=== PATIENT | male | born 1940 | race Caucasian/White ===

== ENCOUNTER 2019-11-08 11:14 | Inpatient (IN) ==
[2019-11-08 12:52] LABS: Basophils # (auto) 0.03 K/uL (0-0.2); Basophils % (auto) 0.4 %; Eosinophils # (auto) 0.22 K/uL (0-0.5); Eosinophils % (auto) 2.7 %; Hemoglobin 13.7 g/dL (14.0-18.0); Immature Granulocytes # (auto) 0.01 K/uL (0.00-0.02); Immature Granulocytes % (auto) 0.1 %; Lymphocytes # (auto) 2.44 K/uL (1.2-3.4); Lymphocytes % (auto) 30.5 %; Mean Corpuscular Hemoglobin 29.2 pg (25-34); Mean Corpuscular Hgb Conc 32.6 g/dL (32-36); Mean Corpuscular Volume 89.6 fL (80-100); Mean Platelet Volume 9.7 fL (7.4-10.4); Monocytes # (auto) 0.84 K/uL (0.11-0.59); Monocytes % (auto) 10.5 %; Neutrophils # (auto) 4.47 K/uL (1.4-6.5); Neutrophils % (auto) 55.8 %; Platelet Count 303 K/uL (130-400); RDW Coefficient of Variation 14.8 % (11.5-14.5); RDW Standard Deviation 48.3 fL (36.4-46.3); Red Blood Count 4.69 M/uL (4.7-6.1); White Blood Count 8.01 K/uL (4.8-10.8)
[2019-11-08] MEDS ORDERED: PIPERACILLIN/TAZOBACTAM 4.5 GM/120 ML BAG IV ONE (12:52)
[2019-11-08] MEDS ORDERED: SODIUM CHLORIDE 0.9% 1000ML 1,000 ML IV ONE (12:52)
[2019-11-08] MEDS ORDERED: PIPERACILL/TAZOBAC CONSULT ACTIVE PRN ×2 (12:52→19:20)
[2019-11-08 13:04] LABS: INR 2.7 (0.9-1.1); Partial Thromboplastin Ratio 1.4; Partial Thromboplastin Time 39.2 Seconds (21.0-31.0); Prothrombin Time 27.2 Seconds (9.0-12.0)
[2019-11-08 13:10] LABS: Alanine Aminotransferase 63 U/L (12-78); Albumin Level 2.6 gm/dl (3.4-5.0); Aspartate Aminotransferase 50 U/L (15-37); BUN Creatinine Ratio 75.2 (10-20); Blood Urea Nitrogen 31 mg/dl (7-18); Calcium 9.3 mg/dl (8.5-10.1); Carbon Dioxide 32 mmol/L (21-32); Chloride 102 mmol/L (98-107); Creatinine Clr Calc Pharmacy 59.2 ml/min; Est GFR (African American) 131.4; Est GFR (Non-African American) 113.4; Glucose 76 mg/dl (70-99); Magnesium 2.2 mg/dl (1.8-2.4); Potassium 3.8 mmol/L (3.5-5.1); Sodium 140 mmol/L (136-145)
[2019-11-08 13:15] LABS: Albumin Globulin Ratio 0.4 (0.9-2); Alkaline Phosphatase 121 U/L (45-117); Bilirubin,Total 0.3 mg/dl (0.2-1); Globulin 6.2 gm/dl (2.5-4.0); Total Protein 8.8 gm/dl (6.4-8.2); Troponin I < 0.015 ng/ml (0-0.045)
--- NOTE | 2019-11-08 13:15 | Emergency Department Note ---
Impression & Plan Pneumonia, Weakness, Acute hypotension ED Provider Note NAME: ABIGAIL HOWARD AGE: 79 SEX: M : 1940 ARRIVES VIA: Walk-In INFORMANT: Patient, the patient's roommate ED PROVIDER(S): Jamir Butler DO CHIEF COMPLAINT: Cough HPI: The patient is a 79-year-old male who has a history of poor nutrition who has a feeding tube who presented to the emergency department for generalized weakness. Some of the history is obtained from the patient's roommate who states that he has been experiencing increased weakness. The patient himself states he is been having shortness of breath as well as cough. He states the cough is productive for a brown and blood-tinged sputum. He does have a history of pulmonary embolism in the past. He denies having any fevers. He denies having any lower extremity swelling. He does admit to significant weight loss. He denies any tuberculosis risk factors such as travel out of the country incarceration living with a family member who was diagnosed with TB or ever being tested for TB. The patient states that his symptoms are moderate to severe at this time. The patient states that his symptoms are moderate to severe at this time. He feels very weak and is having significant difficulty ambulating. ROS: See above HPI for pertinent positives & negatives. A total of 10 systems reviewed and were otherwise negative. PAST MEDICAL HISTORY: See Below PAST SURGICAL HISTORY: See Below FAMILY HISTORY: See Below SOCIAL HISTORY: See Below HOME MEDICATIONS: See Below ALLERGIES: See Below VITALS: See Below PHYSICAL EXAMINATION: GENERAL: The patient is awake and alert but very frail and cachectic appearing. EYES: The conjunctivae are clear. The pupils are round and reactive. EARS, NOSE, MOUTH AND THROAT: The nose is without any evidence of any deformity. Mucous membranes are dry. NECK: The neck is nontender and supple. RESPIRATORY: Diminished breath sounds are noted at the right base with rales at the right base. There is no tachypnea or conversational dyspnea. CARDIOVASCULAR: Regular rate and rhythm noted there no murmurs rubs or gallops normal S1 normal S2. GASTROINTESTINAL: The abdomen is soft. Abdomen is nontender. PELVIS: The Pelvis is stable. No tenderness to palpation is noted. BACK: No midline tenderness or or step-off noted range of motion in flexion extension as well as rotation no signs of muscle spasm noted MUSCULOSKELETAL/EXTREMITIES: There is no evidence of gross deformity full range of motion is noted in the hips and shoulders. SKIN: Skin is warm and dry. NEUROLOGIC: Patient is awake alert and oriented x3. MEDICAL DECISION MAKING: The patient is a 79-year-old male who presented to the emergency department for an evaluation of generalized weakness and difficulty breathing. The patient is noticed cough with brown-tinged sputum. He also noticed some blood in his sputum. The patient was found to have signs of pneumonia on chest x-ray. Given his other findings further radiographic studies including a chest CT were obtained. I discussed the patient's laboratory and radiographic studies with him. He was treated with IV fluids and IV antibiotics. He was reevaluated mult iple times. He was feeling somewhat improved on subsequent reevaluation. The patient continued to have hypotension. I discussed the patient's condition with the on-call [facility] hospitalist. They have agreed to evaluate the patient in the emergency department for further management and disposition. Triage Nursing notes reviewed. Prior medical records reviewed Vital Signs: reviewed and remarkable for hypotension Differential diagnosis: Reactive airway disease, pneumonia, pneumothorax, COPD, CHF, infections, cardiac ischemia, pulmonary embolism, musculoskeletal, gastrointestinal, as well as other pathologies. ER treatment provided: See below Diagnostics interpreted by me: ECG: EKG was obtained in the emergency department. My interpretation is normal sinus rhythm at 71 bpm. Inferior Q waves are noted. Poor R wave progression was noted throughout. This was compared to a tracing from February 122018. No significant changes were noted. Cardiac Monitoring: An order was placed for continuous cardiac monitoring. The monitor shows a rate of 78 with sinus rhythm. Laboratory studies: As stated above and show below. Imaging studies: See below Consultation(s): 1545: I discussed this case with Dr. Finch. He is agreed to evaluate the patient in the emergency department for further management and disposition. ED COURSE: Procedures: none PDMP:reviewed and no issues Critical Care: None Past Med/Surg History Medical History HTN (hypertension) Raynauds disease TIA (transient ischemic attack) Surgical History No pertinent past surgical history Family History Other Family history non-contributory Social History Smoking Status: Never smoker Hx Alcohol Use: No Hx Substance Use: No Preferred Language: Azeri Communication Ability: Effective Press Offbearer Required: No Beliefs That Will Affect Care: None Current Living Situation: Significant Other Feels Safe at Home: Yes Allergies Allergies Allergy/AdvReac Type Severity Reaction Status Date / Time fentanyl Allergy Severe Seizure Verified 11/08/19 14:03 propofol Allergy Severe Seizure Verified 11/08/19 14:03 Home Meds Home Medications Medication Instructions Recorded Confirmed food supplemt, lactose-reduced 1 ea PO QID ml 10/28/19 11/08/19 0.08 gram-1.5 kcal/mL oral liquid calcium carbonate-vitamin D3 1 tab PO QAM 11/08/19 11/08/19 [Calcium 600 + D(3)] food supplemt, lactose-reduced 1 ea PO QID 11/08/19 11/08/19 [Ensure] warfarin [Coumadin] 5 mg PO 5XWK 11/08/19 11/08/19 warfarin [Coumadin] 7.5 mg PO 2XWK 11/08/19 11/08/19 Results & Data (ED) Vital Signs Vital Signs - 24 hr 11/08/19 11:39 11/08/19 12:22 11/08/19 12:30 Temperature 36.8 C Temperature Source Oral Pulse Rate 77 69 Pulse Rate from SpO2 Sensor 69 Respiratory Rate 18 16 Respiratory Effort / Characteristics Non-Labored Respiratory Depth Normal Respiratory Pattern Regular Blood Pressure 93/65 L 103/63 Blood Pressure Mean 74 72 Blood Pressure Position Sitting Pulse Oximetry 97 99 97 Oxygen Delivery Method Room Air Room Air Room Air Sepsis Recent Fever Within 48 Hours No Sepsis New/Unexplained Change in Mental Status No Sepsis Action Taken by Nursing No Action Required 11/08/19 13:00 11/08/19 13:30 11/08/19 14:10 Temperature Temperature Source Pulse Rate 70 68 72 Pulse Rate from SpO2 Sensor 70 68 Respiratory Rate 20 14 18 Respiratory Effort / Characteristics Respiratory Depth Respiratory Pattern Blood Pressure 106/75 110/69 102/62 Blood Pressure Mean 86 75 70 Blood Pressure Position Pulse Oximetry 97 100 Oxygen Delivery Method Room Air Sepsis Recent Fever Within 48 Hours Sepsis New/Unexplained Change in Mental Status Sepsis Action Taken by Nursing 11/08/19 14:30 11/08/19 15:00 11/08/19 15:30 Temperature Temperature Source Pulse Rate 72 68 70 Pulse Rate from SpO2 Sensor 71 68 69 Respiratory Rate 17 13 17 Respiratory Effort / Characteristics Respiratory Depth Respiratory Pattern Blood Pressure 112/63 105/63 103/60 Blood Pressure Mean 74 76 73 Blood Pressure Position Pulse Oximetry 100 98 Oxygen Delivery Method Sepsis Recent Fever Within 48 Hours Sepsis New/Unexplained Change in Mental Status Sepsis Action Taken by Nursing 11/08/19 16:00 Temperature Temperature Source Pulse Rate 77 Pulse Rate from SpO2 Sensor 76 Respiratory Rate 18 Respiratory Effort / Characteristics Respiratory Depth Respiratory Pattern Blood Pressure 91/60 L Blood Pressure Mean 70 Blood Pressure Position Pulse Oximetry 95 Oxygen Delivery Method Sepsis Recent Fever Within 48 Hours Sepsis New/Unexplained Change in Mental Status Sepsis Action Taken by Nursing Laboratory Data Result diagrams: 11/08/19 12:15 11/08/19 12:15 Lab Results 11/08/19 11/08/19 11/08/19 Range/Units 12:15 12:15 12:15 WBC 8.01 (4.8-10.8) K/uL RBC 4.69 L (4.7-6.1) M/uL Hgb 13.7 L (14.0-18.0) g/dL Hct 42.0 (42-52) % MCV 89.6 (80-100) fL MCH 29.2 (25-34) pg MCHC 32.6 (32-36) g/dL RDW Std Deviation 48.3 H (36.4-46.3) fL RDW Coeff of Bee 14.8 H (11.5-14.5) % Plt Count 303 (130-400) K/uL MPV 9.7 (7.4-10.4) fL Immature Gran % (Auto) 0.1 % Neut % (Auto) 55.8 % Lymph % (Auto) 30.5 % Sioux % (Auto) 10.5 % Eos % (Auto) 2.7 % Baso % (Auto) 0.4 % Neut # (Auto) 4.47 (1.4-6.5) K/uL Lymph # (Auto) 2.44 (1.2-3.4) K/uL Sioux # (Auto) 0.84 H (0.11-0.59) K/uL Eos # (Auto) 0.22 (0-0.5) K/uL Baso # (Auto) 0.03 (0-0.2) K/uL Immature Gran # (Auto) 0.01 (0.00-0.02) K/uL PT 27.2 H (9.0-12.0) Seconds INR 2.7 H (0.9-1.1) APTT 39.2 H (21.0-31.0) Seconds PTT Ratio 1.4 Sodium 140 (136-145) mmol/L Potassium 3.8 (3.5-5.1) mmol/L Chloride 102 (98-107) mmol/L Carbon Dioxide 32 (21-32) mmol/L Anion Gap 6.0 (3-11) BUN 31 H (7-18) mg/dl Creatinine 0.41 L (0.6-1.4) mg/dl Est Cr Clr Drug Dosing 59.2 ml/min Est GFR ( Amer) 131.4 Est GFR (Non-Af Amer) 113.4 BUN/Creatinine Ratio 75.2 H (10-20) Glucose 76 (70-99) mg/dl Lactate (0.4-2.0) mmol/L Calcium 9.3 (8.5-10.1) mg/dl Magnesium 2.2 (1.8-2.4) mg/dl Total Bilirubin 0.3 (0.2-1) mg/dl AST 50 H (15-37) U/L ALT 63 (12-78) U/L Alkaline Phosphatase 121 H (45-117) U/L Troponin I < 0.015 (0-0.045) ng/ml Total Protein 8.8 H (6.4-8.2) gm/dl Albumin 2.6 L (3.4-5.0) gm/dl Globulin 6.2 H (2.5-4.0) gm/dl Albumin/Globulin Ratio 0.4 L (0.9-2) Procalcitonin (0-0.5) ng/ml 11/08/19 11/08/19 Range/Units 12:15 13:12 WBC (4.8-10.8) K/uL RBC (4.7-6.1) M/uL Hgb (14.0-18.0) g/dL Hct (42-52) % MCV (80-100) fL MCH (25-34) pg MCHC (32-36) g/dL RDW Std Deviation (36.4-46.3) fL RDW Coeff of Bee (11.5-14.5) % Plt Count (130-400) K/uL MPV (7.4-10.4) fL Immature Gran % (Auto) % Neut % (Auto) % Lymph % (Auto) % Sioux % (Auto) % Eos % (Auto) % Baso % (Auto) % Neut # (Auto) (1.4-6.5) K/uL Lymph # (Auto) (1.2-3.4) K/uL Sioux # (Auto) (0.11-0.59) K/uL Eos # (Auto) (0-0.5) K/uL Baso # (Auto) (0-0.2) K/uL Immature Gran # (Auto) (0.00-0.02) K/uL PT (9.0-12.0) Seconds INR (0.9-1.1) APTT (21.0-31.0) Seconds PTT Ratio Sodium (136-145) mmol/L Potassium (3.5-5.1) mmol/L Chloride (98-107) mmol/L Carbon Dioxide (21-32) mmol/L Anion Gap (3-11) BUN (7-18) mg/dl Creatinine (0.6-1.4) mg/dl Est Cr Clr Drug Dosing ml/min Est GFR ( Amer) Est GFR (Non-Af Amer) BUN/Creatinine Ratio (10-20) Glucose (70-99) mg/dl Lactate 1.1 (0.4-2.0) mmol/L Calcium (8.5-10.1) mg/dl Magnesium (1.8-2.4) mg/dl Total Bilirubin (0.2-1) mg/dl AST (15-37) U/L ALT (12-78) U/L Alkaline Phosphatase (45-117) U/L Troponin I (0-0.045) ng/ml Total Protein (6.4-8.2) gm/dl Albumin (3.4-5.0) gm/dl Globulin (2.5-4.0) gm/dl Albumin/Globulin Ratio (0.9-2) Procalcitonin 0.11 (0-0.5) ng/ml Administered Medications Ioversol (Optiray 320 125ml) 94 ml IV ONCE PRN PRN Reason: Interaction Checking Stop: 11/12/19 13:58 Last Admin: 11/08/19 14:00 Dose: 94 ml Documented by: [id number] Discontinued Medications Piperacillin Sod/Tazobactam Sod (Zosyn) 4.5 gm in 120 mls @ 240 mls/hr IV NOW ONE Stop: 11/08/19 13:21 Last Infusion: 11/08/19 15:13 Dose: 0 mls/hr Documented by: [id number] Admin: 11/08/19 14:00 Dose: 240 mls/hr Documented by: [id number] Sodium Chloride (Nss 1000ml) 1,000 mls @ 999 mls/hr IV .Q1H1M ONE Stop: 11/08/19 13:52 Last Infusion: 11/08/19 15:13 Dose: 0 mls/hr Documented by: [id number] Admin: 11/08/19 14:00 Dose: 999 mls/hr Documented by: [id number] Discharge Plan Visit Data Chief Complaint: Cough Stated Complaint: COUGHING BLOOD, WEAKNESS ED Provider: Jamir Butler Discharge Problem: Pneumonia, Weakness, Acute hypotension Patient Disposition: Being Evaluated by Hospitalist Condition: Good Forms Stand Alone Forms: [facility] Prescriptions Prescriptions: No Action Ensure Enlive 0.08 gram-1.5 kcal/mL liquid 1 ea PO QID RF: 0 warfarin [Coumadin] 7.5 mg tablet 7.5 mg PO 2XWK RF: 0 warfarin [Coumadin] 5 mg tablet 5 mg PO 5XWK RF: 0 Ensure Liquid 1 ea PO QID RF: 0 calcium carbonate-vitamin D3 [Calcium 600 + D(3)] 600 mg(1,500mg) -400 unit tablet 1 tab PO QAM RF: 0 Referrals Referrals: Manny Loomis M.D. [Primary Care Provider] -
--- NOTE | 2019-11-08 13:18 | XRay Report ---
SINGLE VIEW CHEST CLINICAL HISTORY: Sepsis. FINDINGS: An AP, portable, upright chest radiograph is compared to study dated 03/11/2019 and correla sly with chest CT dated 02/12/2019. The cardiomediastinal silhouette is unremarkable. Chronic interst itial thickening is similar to previous. Residual parenchymal scarring is seen in the right midlung. This is almost completely resolved from 03/11/2019. No airspace consolidation or large pleural effusi on is identified. Scarring/atelectasis is noted at the lung bases. No pneumothorax is seen. The skele chiqui structures are osteopenic. The bony thorax is grossly intact. Degenerative change and scoliosis a re noted in the thoracic spine. IMPRESSION: Chronic parenchymal changes as above with no acute cardiopulmonary abnormality. ACT 112: Negative or not required by law. Electronically signed by: Alcides Lott M.D. 11/08/2019 1:16 PM
[2019-11-08] MEDS ORDERED: OPTIRAY 320 125ml IV PRN (13:59)
--- NOTE | 2019-11-08 14:24 | CT Scan Report ---
CT ANGIOGRAM OF THE CHEST CLINICAL HISTORY: Sepsis. COMPARISON STUDY: Chest x-ray dated 11/08/2019. Chest CT dated 02/12/2019. TECHNIQUE: Following the IV administration of 120 cc of Optiray 320, CT angiogram of the chest was pe rformed from the upper abdomen to the thoracic inlet utilizing the pulmonary embolus protocol. Images are reviewed in the axial, sagittal, and coronal planes. 3-D MIPS images are created and assessed. I V contrast was administered without complication. A dose lowering technique was utilized adhering to the principles of ALARA. CT DOSE: 282.13 mGy.cm FINDINGS: Thyroid: Imaged portions of the thyroid gland are normal in size and attenuation. Thoracic aorta: There is mild atherosclerotic calcification of the thoracic aorta, which is normal in caliber and demonstrates standard 3-vessel arch anatomy. No dissection is seen. Pulmonary vasculature: The pulmonary trunk is normal in caliber. There are no filling defects identif ied in main, lobar, or segmental pulmonary branches to suggest pulmonary embolus. Heart: The heart is normal in size and without pericardial effusion. Lungs and pleural spaces: Evaluation of the lung parenchyma is degraded by motion artifact. There is masslike consolidation at the paramediastinal right lung base. Foci of nodular consolidation are agai n seen in the left upper lobe and at the left apex on image #168 (measuring 0.7 cm) and at the left a pex on image #251 (measuring 1.8 cm). There are new subcentimeter foci of nodularity in the left lowe r lobe seen on images #82 and #95. Additional patchy groundglass consolidation is present throughout both lungs, greatest at the lung bases and in the right middle lobe. A trace right pleural effusion i s noted. Secretions are noted in the trachea. Parenchyma scarring is noted in the right middle lobe. Mediastinum: Prominent mediastinal lymph nodes are identified. A pretracheal node on image #213 measu res 10 mm short axis. A subcarinal node measures 1.8 cm in short axis. Antonella: No hilar adenopathy is seen. Axillae: There is no axillary lymphadenopathy. Upper abdomen: A 2.4 cm cyst is seen in the upper pole of the left kidney. Partially visualized upper abdominal viscera is otherwise grossly unremarkable. Skeletal structures: The skeletal structures are osteopenic. Degenerative change and kyphoscoliosis a re noted in the thoracic spine. Advanced degenerative change is seen at the left sternoclavicular ruth nt. No lytic or blastic bony lesions are seen. Soft tissues: The patient is cachectic. IMPRESSION: 1. There is no evidence of pulmonary embolus in the main, lobar, or segmental pulmonary arteries. 2. There is masslike consolidation now seen in the paramediastinal right lower lobe at the lung base. This is new from 02/12/2019, and likely represents pneumonia. Follow-up to resolution is recommended . 3. Foci of nodularity/consolidation in the left upper lobe or also seen previously. 4. There are new subcentimeter foci of consolidation in the left lower lobe, as well as extensive lynette undglass consolidation throughout both lung bases. This is also likely on an infectious/inflammatory basis. Clinical correlation will be required and pulmonology follow-up for all of the above findings is recommended. 5. There is a trace right pleural effusion. 6. Additional findings as above. ACT 112: Negative or not required by law. Electronically signed by: Aclides Lott M.D. 11/08/2019 2:23 PM
--- NOTE | 2019-11-08 15:53 | History & Physical Report ---
Date of Service November 08, 2019 Assessment & Plan (1) Pneumonia: Imaging convincing of PNA however not overly symptomatic and may purely be aspiration (still drinking coffee despite PEG tube placement) Zosyn 3.75mg Q8H MRSA nose swab to assess for need for vancomycin coverage F/U blood cultures, sputum cultures Given complexity of patient with, unclear definitive PNA (procal, WBC and Hx not conclusive), hemoptysis, prior cavitary lung lesion and possible mass in lung will consult his career services officer. (2) Hemoptysis: In setting of INR 2.7 with chronic warfarin use for PE. None today therefore will not reverse his INR at this time. Monitor PTINR daily (3) Dehydration: Elevated spec. gravity urine. BUN increased from prior although Cr appears stable he has had significant weight loss since his last lab test in Jan 2019. IV D5W 0.5NSS + KCl maintenance (4) Acute hypotension: Mild low BP (previously on anti-hypertensives prior to stopping them in June. Continue IV fluids only as long as mean arterial pressure > 65. Cortisol level in AM given prior chronic steroid use and unclear when he stopped this. 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 No longer taking these medications as per the patient. Consult rheumatology tomorrow for assistance in management. I do not feel there is an urgent need to start steroids in the setting of PNA overnight prior to rheumatology recommendations unless he becomes hypotensive with possible adrenal insufficiency. ?muscular problem causing him to feel like he cannot take deep breaths. (7) Severe protein-calorie malnutrition: Consult dietary for enteral feeding through PEG tube (lactose-free formula at home) Magnesium and phosphate levels with AM labs Consult palliaitve care with assistance in patient goals and symptomatic management - previously mentioned in pulmonology note to consider this. (8) Status post insertion of percutaneous endoscopic gastrostomy (PEG) tube: Secondary to dysphagia with inclusion body myositis (9) DVT prophylaxis: Chemical contraindicated. Given severe protein-calorie malnutrition SCDs risk > benefit - especially as may just move DVTs he previously had Admission and Anticipated Discharge Date Admission Date: 08/10/2019 History of Present Illness Chief Complaint: Hemoptysis, generalized weakness, malnutrition Primary Care Provider: Manny Larsenan Catracho is a 79 year old male with complex medical history who presents to the ER with 4 days of hemoptysis, rapid weight loss and generalized weakness. Hemoptysis actually improved today, yesterday was at it's worst. Very shortness of breath on exertion, feels he is unable to take deep breaths. He reports never having coughed up clots previously, however previous notes reveal this was his presenting complaint in Jan 2019 when he was admitted to [facility] with a cavitary lung lesion. On that admission he was diagnosed with b/l PE and a 4cm cavitary lung lesion suspect to be a pulmonary infarct, pseudomonas PNA treated with initially with Zosyn (switched to cefepime) and Levaquin for 3-4 weeks. He was diagnosed with inclusion body myositis by Dr Federica Nathan at [facility] in June 2018. At that time having dysphagia and severe muscle weakness. PEG tube placed at that time and changed 02/2019 Noted at his GI appointment in April he was noted not to be taking any medication (although prednisone and azathioprine were on med list). He was also not on any anticoagulation at this time but unclear why it was stopped. The patient reports stopping all of his medications but unclear exactly when. He felt with all the weight loss that he might be on too much. I am very concerned about this patient's lack of follow up given his severity of his conditions. He is yet to see a banking officer since moving from [place]. CT apparently arranged at pulmonology appointment however the patient knows nothing about this. He is here today with his room mate (Neymar) who also was not aware he was supposed to have a CT back at the end of August and apparently help the patient with his medication and general medical care. The patient reports weight loss very rapidly over the last 2 weeks in addition. Weight in ER 27.72kg. On this was 46.2kg. 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 He does still drink coffee despite advice to stop all oral intake due to aspiration risk. Allergies Allergy/AdvReac Type Severity Reaction Status Date / Time fentanyl Allergy Severe Seizure Verified 11/08/19 14:03 propofol Allergy Severe Seizure Verified 11/08/19 14:03 Home Medications Home Medications Medication Instructions Recorded Confirmed Type food supplemt, lactose-reduced 1 ea PO QID ml 10/28/19 11/08/19 History 0.08 gram-1.5 kcal/mL oral liquid calcium carbonate-vitamin D3 1 tab PO QAM 11/08/19 11/08/19 History [Calcium 600 + D(3)] food supplemt, lactose-reduced 1 ea PO QID 11/08/19 11/08/19 History [Ensure] warfarin [Coumadin] 5 mg PO 5XWK 11/08/19 11/08/19 History warfarin [Coumadin] 7.5 mg PO 2XWK 11/08/19 11/08/19 History Past Med/Surg History Medical History (Updated 11/09/19 @ 08:38 by Branydn Finch MD) Dysphagia HTN (hypertension) Inclusion body myositis Raynauds disease Severe protein-calorie malnutrition TIA (transient ischemic attack) Family History Other Family history non-contributory Social History Smoking Status: Former smoker Smoking End Date: quit 30-40 years ago; Hx Alcohol Use: No Hx Substance Use: No Preferred Language: Citizen Of [place] Communication Ability: Effective Rn Provider Relations Required: No Beliefs That Will Affect Care: None Current Living Situation: Other Current Living Situation Comment: lives with roommate Other Information That Helps Us Care for You: No Feels Safe at Home: Yes Safety Concerns: Feels Safe At This Time Review of Systems Review of Systems: All systems reviewed & are unremarkable except as noted in HPI & below Constitutional: + weight loss; no fever and no chills Physical Exam Constitutional: + cachectic; + not well nourished and no acute distress Eyes: + anicteric sclerae; normal pupil size Respiratory: Auscultation: + diminished lung sounds (poor inspiratory effort R base > L) and + wheezes; no crackles, no rales and no rhonchi Cardiovascular: Rate/Rhythm: regular rate (very quiet HS) and regular rhythm Vessels: no JVD Extremities: normal capillary refill; no calf tenderness and no pedal edema Gastrointestinal (Abdomen): Inspection/Auscultation: abdomen normal to inspection (PEG tube in situ) Percussion/Palpation: abdomen soft; abdomen nontender, no guarding and abdomen not rigid Musculoskeletal: Extremities: + muscle atrophy (severe generalized b/l) Skin: no rashes, warm and dry Neurologic: moves all extremities and awake; not confused Speech / Cognition: normal speech Psychiatric: Orientation: alert and oriented x 3 Genitourinary: no CVA tenderness Results & Data Results & Data ([facility]) Vital Signs (Past 12 Hours) Vital Signs Temp Pulse Resp BP Pulse Ox 11/08/19 13:00 70 20 106/75 97 11/08/19 12:30 69 16 103/63 97 11/08/19 12:22 99 11/08/19 11:39 36.8 C 77 18 93/65 L 97 Diagnostic Findings SINGLE VIEW CHEST IMPRESSION: Chronic parenchymal changes as above with no acute cardiopulmonary abnormality. CT ANGIOGRAM OF THE CHEST IMPRESSION: 1. There is no evidence of pulmonary embolus in the main, lobar, or segmental pulmonary arteries. 2. There is masslike consolidation now seen in the paramediastinal right lower lobe at the lung base. This is new from 02/12/2019, and likely represents pneumonia. Follow-up to resolution is recommended. 3. Foci of nodularity/consolidation in the left upper lobe or also seen previously. 4. There are new subcentimeter foci of consolidation in the left lower lobe, as well as extensive groundglass consolidation throughout both lung bases. This is also likely on an infectious/inflammatory basis. Clinical correlation will be required and pulmonology follow-up for all of the above findings is recommended. 5. There is a trace right pleural effusion. 6. Additional findings as above. ECG Rate (beats per minute): 71 Rhythm: normal sinus Findings: + other (age indetermined anterolateral infarct) Comparison ECG Date: from (02/12/2019) Change: no significant change Code Status & VTE Plan Code Status DNR/DNI as discussed with the patient. VTE Prophylaxis Plan VTE Prophylaxis will be ordered: Yes Reason for no VTE drug order: Contraindicated PG Care Time/CCT Total # of Minutes Spent Total Time Spent with Patient: Total time spent is greater than 50% in coordination of care (as documented) at patient's floor/unit and/or counseling patient: Coding Level of Care Code 57111 Initial Inpt Care Lvl 3 Diagnoses Pneumonia J18.9 Laterality: bilateral Lung location: lower lobe of lung Pneumonia type: due to unspecified organism Hemoptysis R04.2 Dehydration E86.0 Acute hypotension I95.9 Weakness R53.1 Inclusion body myositis G72.41 Severe protein-calorie malnutrition E43 Status post insertion of percutaneous endoscopic gastrostomy (PEG) tube Z93.1 DVT prophylaxis Z29.9 (1) Pneumonia Laterality: bilateral Lung location: lower lobe of lung Pneumonia type: due to unspecified organism Qualified Code(s): J18.9 - Pneumonia, unspecified organism
[2019-11-08] MEDS ORDERED: NON-FORMULARY MEDICATION (Food Supplemt, Lactose-Reduced [Ensure] 1 EA) PO SCH (18:48)
[2019-11-08] MEDS ORDERED: LACTATED RINGER'S 1,000 ML IV SCH (19:15)
[2019-11-08] MEDS ORDERED: Nursing to Pharmacy Communication SCH (19:30)
[2019-11-08] MEDS ORDERED: PIPERACILLIN/TAZOBACTAM 3.375 GM in DEXTROSE 5% 100 ML IV SCH (20:00)
[2019-11-08 20:04] LABS: Appearance Urine Cloudy (Clear); Bacteria Urine Automated Negative (Negative); Bilirubin Urine Negative (Negative); Blood Urine Negative (Negative); Cast Urine Automated 0 /lpf (0-5); Color Urine Yellow; Glucose Urine UA Negative (Negative); Ketones Urine Negative (Negative); Leukocyte Esterase Urine Negative (Negative); Nitrite Urine Negative (Negative); RBC Urine Automated 0-4 /hpf (0-4); Specific Gravity Urine > 1.045 (1.000-1.030); Urobilinogen Urine Negative (Negative); pH Urine >= 9.0 (4.5-7.5)
[2019-11-08 20:08] LABS: Protein Urine Negative (Negative); Sulfosalicylic Acid Urine Negative (Negative)
[2019-11-08] MEDS ORDERED: ENTERAL FEEDING PO SCH (21:00)
[2019-11-08] MEDS: PIPERACILLIN/TAZOBACTAM 3.375 GM in DEXTROSE 5% 100 ML IV SCH (21:25)
[2019-11-08] MEDS: D5W AND 1/2NSS + 30MEQ KCL 30 MEQ/1,000 ML BAG IV SCH (21:51)
[2019-11-09] MEDS: PIPERACILLIN/TAZOBACTAM 3.375 GM in DEXTROSE 5% 100 ML IV SCH ×2 (04:00→15:43)
[2019-11-09] MEDS ORDERED: SODIUM CHLORIDE 0.9% 1000ML 500 ML IV ONE (05:00)
[2019-11-09] MEDS: ENTERAL FEEDING PO SCH ×3 (06:15→17:14)
[2019-11-09 08:51] LABS: Basophils # (auto) 0.04 K/uL (0-0.2); Basophils % (auto) 0.6 %; Eosinophils # (auto) 0.18 K/uL (0-0.5); Eosinophils % (auto) 2.7 %; Hematocrit (blood only) 37.9 % (42-52); Hemoglobin 12.3 g/dL (14.0-18.0); Lymphocytes # (auto) 1.58 K/uL (1.2-3.4); Lymphocytes % (auto) 23.6 %; Mean Corpuscular Hemoglobin 29.1 pg (25-34); Mean Corpuscular Hgb Conc 32.5 g/dL (32-36); Mean Corpuscular Volume 89.8 fL (80-100); Mean Platelet Volume 9.5 fL (7.4-10.4); Monocytes # (auto) 0.62 K/uL (0.11-0.59); Monocytes % (auto) 9.3 %; Neutrophils # (auto) 4.27 K/uL (1.4-6.5); Neutrophils % (auto) 63.8 %; Platelet Count 245 K/uL (130-400); RDW Standard Deviation 49.2 fL (36.4-46.3); Red Blood Count 4.22 M/uL (4.7-6.1); White Blood Count 6.69 K/uL (4.8-10.8)
[2019-11-09 09:02] LABS: INR 2.3 (0.9-1.1); Partial Thromboplastin Ratio 1.4; Partial Thromboplastin Time 37.8 Seconds (21.0-31.0); Prothrombin Time 22.9 Seconds (9.0-12.0)
[2019-11-09 09:20] LABS: Albumin Level 2.1 gm/dl (3.4-5.0); BUN Creatinine Ratio 37.7 (10-20); Calcium 8.4 mg/dl (8.5-10.1); Creatinine Clr Calc Pharmacy 96.5 ml/min; Est GFR (African American) 132.8; Est GFR (Non-African American) 114.6; Magnesium 1.8 mg/dl (1.8-2.4); Potassium 3.2 mmol/L (3.5-5.1)
[2019-11-09 09:25] LABS: Albumin Globulin Ratio 0.4 (0.9-2); Bilirubin,Total 0.3 mg/dl (0.2-1); Globulin 5.1 gm/dl (2.5-4.0); Phosphorus 2.7 mg/dl (2.5-4.9); Total Protein 7.2 gm/dl (6.4-8.2)
--- NOTE | 2019-11-09 09:27 | Pulmonary Consultation ---
Date of Consultation November 09, 2019 Assessment & Plan (1) Abnormal CT scan of lung: Impression: 79-year-old male with inclusion body myositis and profound malnutrition with cachexia admitted with hemoptysis and evidence of pneumonia. Review of his CT scan from August demonstrates that this is a new finding which would be a very rapid progression for malignancy. I favor pneumonia. The patient does have significant debris noted in his tracheobronchial tree likely secondary to his swallowing dysfunction which may have predisposed him to pneumonia. The mediastinal lymph node appears unchanged when compared to prior CT scan from January 2019. Recommendations: 1. Hemoptysis: Suspect this is secondary to pneumonia with underlying anticoagulation. Given the debris and some nodular densities noted within the airway, I do recommend fiberoptic bronchoscopy. Recommend holding Coumadin. We will proceed with bronchoscopy once INR is less than 1.5. 2. Abnormal CT scan: Likely aspiration pneumonia: Cultures currently pending. Patient is currently day #2 Zosyn. 3. History of PE: Seems reasonable to stop anticoagulation for now and observe clinically. No evidence of recurrent PE on his current film. We had medication previously for lifelong anticoagulation. 4. The patient's mediastinal lymph node is been stable dating back to January therefore my suspicion for malignancy is quite low. In addition the patient has CT the abdomen which did not current findings back in August and 2-month well I would be very rapid to develop the side of a malignancy. Favor inflammatory or infectious etiology. The plan was discussed with the patient extensively at the bedside. He agreed with the plan as outlined. We will continue to follow with you. (2) Hemoptysis: (3) Pneumonia: History of Present Illness Attending Physician: Brandyn Kim History of Present Illness Asked by hospitalist to assist in management of this patient with an abnormal CT scan and hemoptysis. The patient is known to me from clinic visit. Patient is a 79-year-old male with inclusion body myositis and profound cachexia. 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 He had a cavitary lung lesion at that point time and was treated for possible pneumonia. This was evaluated and treated at [facility]. I evaluated the patient recommended a follow-up CT scan. Does not appear that this was accomplished. The patient presented to the emergency room yesterday with 4 days of hemoptysis and generalized weakness. He is unable to quantify the amount of hemoptysis but it sounds submassive. He does have a history of being on anticoagulants. He does not report fevers chills or night sweats but does report continued weakness. He is using his G-tube for nutritional supplements. He is not yet established with rheumatology. He continues to take p.o. intake and likely continues to aspirate. Allergies Allergy/AdvReac Type Severity Reaction Status Date / Time fentanyl Allergy Severe Seizure Verified 11/08/19 14:03 propofol Allergy Severe Seizure Verified 11/08/19 14:03 Home Medications Home Medications Medication Instructions Recorded Confirmed Type food supplemt, lactose-reduced 1 ea PO QID ml 10/28/19 11/08/19 History 0.08 gram-1.5 kcal/mL oral liquid calcium carbonate-vitamin D3 1 tab PO QAM 11/08/19 11/08/19 History [Calcium 600 + D(3)] food supplemt, lactose-reduced 1 ea PO QID 11/08/19 11/08/19 History [Ensure] warfarin [Coumadin] 5 mg PO 5XWK 11/08/19 11/08/19 History warfarin [Coumadin] 7.5 mg PO 2XWK 11/08/19 11/08/19 History Patient History Medical History (Updated 11/09/19 @ 09:20 by Ruel Butts MD) Dysphagia HTN (hypertension) Inclusion body myositis Raynauds disease Severe protein-calorie malnutrition TIA (transient ischemic attack) Family History Other Family history non-contributory Social History Smoking Status: Former smoker Smoking End Date: quit 30-40 years ago; Hx Alcohol Use: No Hx Substance Use: No Preferred Language: [place] Communication Ability: Effective Architectural Designer Required: No Beliefs That Will Affect Care: None Current Living Situation: Other Current Living Situation Comment: lives with roommate Other Information That Helps Us Care for You: No Feels Safe at Home: Yes Safety Concerns: Feels Safe At This Time Review of Systems Review of Systems: Please refer to admission H&P. No additions or deletions Physical Exam Constitutional: + cachectic; + not well nourished and no acute distress Eyes: + anicteric sclerae; normal pupil size Respiratory: Auscultation: + diminished lung sounds (poor inspiratory effort R base > L) and + wheezes; no crackles, no rales and no rhonchi Cardiovascular: Rate/Rhythm: regular rate (very quiet HS) and regular rhythm Vessels: no JVD Extremities: normal capillary refill; no calf tenderness and no pedal edema Gastrointestinal (Abdomen): Inspection/Auscultation: abdomen normal to inspection (PEG tube in situ) Percussion/Palpation: abdomen soft; abdomen nontender, no guarding and abdomen not rigid Musculoskeletal: Extremities: + muscle atrophy (severe generalized b/l) Skin: no rashes, warm and dry Neurologic: moves all extremities and awake; not confused Speech / Cognit ion: normal speech Psychiatric: Orientation: alert and oriented x 3 Genitourinary: no CVA tenderness Results & Data Results & Data ([facility]) Vital Signs (Past 12 Hours) Vital Signs Temp Pulse Pulse Resp BP BP Pulse Ox 11/09/19 07:28 36.5 C 70 20 99/66 L 97 11/09/19 06:24 67 102/67 11/09/19 04:37 36.6 C 71 20 78/59 L 97 11/09/19 00:19 37 C 72 18 96/64 L 95 11/08/19 23:57 89 Laboratory Results 11/09/19 08:[address] the chest independently reviewed CT ANGIOGRAM OF THE CHEST CLINICAL HISTORY: Sepsis. COMPARISON STUDY: Chest x-ray dated 11/08/2019. Chest CT dated 02/12/2019. TECHNIQUE: Following the IV administration of 120 cc of Optiray 320, CT angiogram of the chest was performed from the upper abdomen to the thoracic inlet utilizing the pulmonary embolus protocol. Images are reviewed in the axial, sagittal, and coronal planes. 3-D MIPS images are created and assessed. IV contrast was administered without complication. A dose lowering technique was utilized adhering to the principles of ALARA. CT DOSE: 282.13 mGy.cm FINDINGS: Thyroid: Imaged portions of the thyroid gland are normal in size and attenuation. Thoracic aorta: There is mild atherosclerotic calcification of the thoracic aorta, which is normal in caliber and demonstrates standard 3-vessel arch anatomy. No dissection is seen. Pulmonary vasculature: The pulmonary trunk is normal in caliber. There are no filling defects identified in main, lobar, or segmental pulmonary branches to carrington ggest pulmonary embolus. Heart: The heart is normal in size and without pericardial effusion. Lungs and pleural spaces: Evaluation of the lung parenchyma is degraded by motion artifact. There is masslike consolidation at the paramediastinal right lung base. Foci of nodular consolidation are again seen in the left upper lobe and at the left apex on image #168 (measuring 0.7 cm) and at the left apex on image #251 (measuring 1.8 cm). There are new subcentimeter foci of nodularity in the left lower lobe seen on images #82 and #95. Additional patchy groundglass consolidation is present throughout both lungs, greatest at the lung bases and in the right middle lobe. A trace right pleural effusion is noted. Secretions are noted in the trachea. Parenchyma scarring is noted in the right middle lobe. Mediastinum: Prominent mediastinal lymph nodes are identified. A pretracheal node on image #213 measures 10 mm short axis. A subcarinal node measures 1.8 cm in short axis. Antonella: No hilar adenopathy is seen. Axillae: There is no axillary lymphadenopathy. Upper abdomen: A 2.4 cm cyst is seen in the upper pole of the left kidney. Partially visualized upper abdominal viscera is otherwise grossly unremarkable. Skeletal structures: The skeletal structures are osteopenic. Degenerative change and kyphoscoliosis are noted in the thoracic spine. Advanced degenerative change is seen at the left sternoclavicular joint. No lytic or blastic bony lesions are seen. Soft tissues: The patient is cachectic. IMPRESSION: 1. There is no evidence of pulmonary embolus in the main, lobar, or segmental pulmonary arteries. 2. There is masslike consolidation now seen in the paramediastinal right lower lobe at the lung base. This is new from 02/12/2019, and likely represents pneumonia. Follow-up to resolution is recommended. 3. Foci of nodularity/consolidation in the left upper lobe or also seen pr eviously. 4. There are new subcentimeter foci of consolidation in the left lower lobe, as well as extensive groundglass consolidation throughout both lung bases. This is also likely on an infectious/inflammatory basis. Clinical correlation will be required and pulmonology follow-up for all of the above findings is recommended. 5. There is a trace right pleural effusion. 6. Additional findings as above. PG Care Time/CCT Total # of Minutes Spent Total Time Spent with Patient: Total time spent is greater than 50% in coordination of care (as documented) at patient's floor/unit and/or counseling patient: Coding Level of Care Code 34943 Initial Inpt Care Lvl [address] scan of lung R91.8 Hemoptysis R04.2 Pneumonia J18.9
[2019-11-09] MEDS: D5W AND 1/2NSS + 30MEQ KCL 30 MEQ/1,000 ML BAG IV SCH ×2 (09:45→21:34)
[2019-11-09] MEDS: FIBERSOURCE HN 1.2 CAL 1000 ML BAG GT SCH ×2 (11:28→15:31)
[2019-11-09] MEDS: POTASSIUM CHLORIDE / WTR 10 MEQ/100 ML PLCT IV SCH ×2 (11:29→13:36)
--- NOTE | 2019-11-09 13:57 | Hospitalist Progress Note ---
Date of Service November 09, 2019 Assessment & Plan (1) Pneumonia: * Imaging convincing of PNA however not overly symptomatic and may purely be aspiration (still drinking coffee despite PEG tube placement) * Continue Zosyn 3.75mg Q8H * Supplemental O2 as needed -- currently 96% on RA * Nasal MRSA swab negative * BCx -- ngtd -- follow * Pulmonary on consult -- appreciate assistance Plan for fiberoptic bronchoscopy. Will continue to hold coumadin and proceed once INR <1.5. 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 gravity urine. BUN increased from prior although Cr appears stable he has had significant weight loss since his last lab test in Jan 2019. * Continue IVF -- D5W 1/2 NSS + 30 meq KCl at 80ml/hr * BMP in AM (4) Acute hypotension: * Mild low BP (previously on anti-hypertensives prior to stopping them in June -- BP stable low at 104/62 * Continue IV fluids only as long as mean arterial pressure > 65. 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 No longer taking these medications as per the patient. Diagnosed byt Dr. Nathan [facility] June 2018 per outpatient notes * Spoke with Rheumatology --> unless need for urgent evaluation, may call Dr. Perez once patient discharged (was previously scheduled this saturday, 11/10 and had 2 no shows) and he will see about getting him in sooner for follow-up. Will reach out if needs more emergent evaluation * ?muscular problem causing him to feel like he cannot take deep breaths. (7) Severe protein-calorie malnutrition: * Consult dietary for enteral feeding through PEG tube (lactose-free formula at home) * Had trialed strictly fibersource today but patient with increased diarrhea --> Neymar brought in home supplements and we will switch patient back to these * Consult palliaitve care with assistance in patient goals and symptomatic management - previously mentioned in pulmonology note to consider this. --> will be seen tomorrow hopefully (8) Status post insertion of percutaneous endoscopic gastrostomy (PEG) tube: * Secondary to dysphagia with inclusion body myositis (9) Hypokalemia: * K 3.2 -- already receiving in IVF --> will order additional 2 K riders * Repeat labs in AM (10) DVT prophylaxis: * Chemical contraindicated. * Given severe protein-calorie malnutrition SCDs risk > benefit - especially as may just move DVTs he previously had Dispo: bronchoscopy with Dr. Butts once INR <1.5. Continue abx, supportive treatment for now Admission and Anticipated Discharge Date Admission Date: November 08, 2019 Supervising Physician Co-Signing Physician Notes Attending Attestation: Chart reviewed in detail, care plan d/w KIANA Patton. I agree w/ the huthcins components of her documentation. 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 Here with extensive pneumonia - likely aspiration- due to known dysphagia. COVID-19 testing negative. Cont antibiotics. Pulmonary consultation appreciated. Brandyn Kim MD Subjective Patient feeling generally not well. Generalized maliase. Still with cough. Continued weight loss. Chills. Hemoptysis on admission but denied any further today. Discussed if patient takes anything by mouth at all with his PEG in place and he denied any oral intake, however discussion with partner in maki confirms patient does still wake up every day at 2am to have cup of coffee despite being told by GI "if you don't listen don't come back" with regards to eating or drinking anything by mouth. Patient has trialed multiple tube feeds but has discontinued several in the past secondary to diarrhea. Patient with history of inclusion body myositis and was supposed to see Rheumatology in the past but has not had follow up. Patient had recently been seen by pulmonary and placed back on coumadin for hx PE in Jan 2019 secondary to sedentary lifestyle and possible underlying malignancy given recent weight loss. Plan for possible bronchoscopy once INR therapeutic. Discussed with patient and partner Neymar Thomas. All questions/concerns addressed at this time. Review of Systems Review of Systems: All systems reviewed & are unremarkable except as noted in HPI & below Physical Exam Constitutional: + thin, + cachectic and comfortable; + not well nourished and no acute distress Eyes: + anicteric sclerae and PERRL ENMT: Ears: no hearing impairment Nose: no external nose abnormality dry mm Respiratory: no respiratory distress, no labored breathing and does not use accessory muscles Auscultation: + diminished lung sounds and + wheezes Cardiovascular: Rate/Rhythm: regular rate and regular rhythm Heart Sounds: no murmur and no cardiac rub Vessels: no JVD Extremities: no edema Gastrointestinal (Abdomen): Inspection/Auscultation: normal bowel sounds Percussion/Palpation: abdomen soft; abdomen nontender PEG tube without evidence of erythema/drainage Musculoskeletal: generalized muscle atrophy Skin: decreased turgor Neurologic: PERRL, EOMI, accommodation nl, no face palsy, no dysarthria Psychiatric: Orientation: alert, oriented x 3 and cooperative Lymphatic: no cervical or axillary lymphadenopathy Results & Data Results & Data ([facility]) Vital Signs (Past 12 Hours) Vital Signs Temp Pulse Pulse Resp BP BP Pulse Ox 11/09/19 07:28 36.5 C 70 20 99/66 L 97 11/09/19 06:24 67 102/67 11/09/19 06:20 72 11/09/19 04:37 36.6 C 71 20 78/59 L 97 Laboratory Results 11/09/19 11/09/19 11/09/19 Range/Units 10:15 10:15 08:20 WBC (4.8-10.8) K/uL RBC (4.7-6.1) M/uL Hgb (14.0-18.0) g/dL Hct (42-52) % MCV (80-100) fL MCH (25-34) pg MCHC (32-36) g/dL RDW Std Deviation (36.4-46.3) fL RDW Coeff of Bee (11.5-14.5) % Plt Count (130-400) K/uL MPV (7.4-10.4) fL Immature Gran % (Auto) % Neut % (Auto) % Lymph % (Auto) % [place] % (Auto) % Eos % (Auto) % Baso % (Auto) % Neut # (Auto) (1.4-6.5) K/uL Lymph # (Auto) (1.2-3.4) K/uL [place] # (Auto) (0.11-0.59) K/uL Eos # (Auto) (0-0.5) K/uL Baso # (Auto) (0-0.2) K/uL Immature Gran # (Auto) (0.00-0.02) K/uL PT (9.0-12.0) Seconds INR (0.9-1.1) APTT (21.0-31.0) Seconds PTT Ratio Sodium 140 (136-145) mmol/L Potassium 3.2 L D (3.5-5.1) mmol/L Chloride 108 H (98-107) mmol/L Carbon Dioxide 25 (21-32) mmol/L Anion Gap 7.0 (3-11) BUN 15 D (7-18) mg/dl Creatinine 0.40 L (0.6-1.4) mg/dl Est Cr Clr Drug Dosing 96.5 ml/min Est GFR ( Amer) 132.8 Est GFR (Non-Af Amer) 114.6 BUN/Creatinine Ratio 37.7 H (10-20) Glucose 125 H (70-99) mg/dl Calcium 8.4 L (8.5-10.1) mg/dl Phosphorus 2.7 (2.5-4.9) mg/dl Magnesium 1.8 (1.8-2.4) mg/dl Total Bilirubin 0.3 (0.2-1) mg/dl AST 34 (15-37) U/L ALT 45 (12-78) U/L Alkaline Phosphatase 93 (45-117) U/L Total Protein 7.2 (6.4-8.2) gm/dl Albumin 2.1 L (3.4-5.0) gm/dl Globulin 5.1 H (2.5-4.0) gm/dl Albumin/Globulin Ratio 0.4 L (0.9-2) Cortisol AM Sample (4.3-22.4) mcg/dl Urine Color Urine Appearance (Clear) Urine pH (4.5-7.5) Ur Specific [place] (1.000-1.030) Urine Protein (Negative) Urine Glucose (UA) (Negative) Urine Ketones (Negative) Urine Blood (Negative) Urine Nitrite (Negative) Urine Bilirubin (Negative) Urine Urobilinogen (Negative) Ur Leukocyte Esterase (Negative) Urine WBC (Auto) (0-5) /hpf Urine RBC (Auto) (0-4) /hpf U Hyaline Cast (Auto) (0-5) /lpf U Epithel Cells (Auto) (0-5) /lpf Urine Bacteria (Auto) (Negative) Nasal Screen MRSA (PCR) (Negative) COVID-19 PCR NEGATIVE (Negative) SARS-CoV-2 RNA (RT-PCR) Cancelled 11/09/19 11/09/19 11/09/19 Range/Units 08:20 08:20 08:20 WBC 6.69 (4.8-10.8) K/uL RBC 4.22 L (4.7-6.1) M/uL Hgb 12.3 L (14.0-18.0) g/dL Hct 37.9 L (42-52) % MCV 89.8 (80-100) fL MCH 29.1 (25-34) pg MCHC 32.5 (32-36) g/dL RDW Std Deviation 49.2 H (36.4-46.3) fL RDW Coeff of Bee 15.0 H (11.5-14.5) % Plt Count 245 (130-400) K/uL MPV 9.5 (7.4-10.4) fL Immature Gran % (Auto) 0.0 % Neut % (Auto) 63.8 % Lymph % (Auto) 23.6 % [place] % (Auto) 9.3 % Eos % (Auto) 2.7 % Baso % (Auto) 0.6 % Neut # (Auto) 4.27 (1.4-6.5) K/uL Lymph # (Auto) 1.58 (1.2-3.4) K/uL [place] # (Auto) 0.62 H (0.11-0.59) K/uL Eos # (Auto) 0.18 (0-0.5) K/uL Baso # (Auto) 0.04 (0-0.2) K/uL Immature Gran # (Auto) 0.00 (0.00-0.02) K/uL PT 22.9 H (9.0-12.0) Seconds INR 2.3 H (0.9-1.1) APTT 37.8 H (21.0-31.0) Seconds PTT Ratio 1.4 Sodium (136-145) mmol/L Potassium (3.5-5.1) mmol/L Chloride (98-107) mmol/L Carbon Dioxide (21-32) mmol/L Anion Gap (3-11) BUN (7-18) mg/dl Creatinine (0.6-1.4) mg/dl Est Cr Clr Drug Dosing ml/min Est GFR ( Amer) Est GFR (Non-Af Amer) BUN/Creatinine Ratio (10-20) Glucose (70-99) mg/dl Calcium (8.5-10.1) mg/dl Phosphorus (2.5-4.9) mg/dl Magnesium (1.8-2.4) mg/dl Total Bilirubin (0.2-1) mg/dl AST (15-37) U/L ALT (12-78) U/L Alkaline Phosphatase (45-117) U/L Total Protein (6.4-8.2) gm/dl Albumin (3.4-5.0) gm/dl Globulin (2.5-4.0) gm/dl Albumin/Globulin Ratio (0.9-2) Cortisol AM Sample 9.54 (4.3-22.4) mcg/dl Urine Color Urine Appearance (Clear) Urine pH (4.5-7.5) Ur Specific [place] (1.000-1.030) Urine Protein (Negative) Urine Glucose (UA) (Negative) Urine Ketones (Negative) Urine Blood (Negative) Urine Nitrite (Negative) Urine Bilirubin (Negative) Urine Urobilinogen (Negative) Ur Leukocyte Esterase (Negative) Urine WBC (Auto) (0-5) /hpf Urine RBC (Auto) (0-4) /hpf U Hyaline Cast (Auto) (0-5) /lpf U Epithel Cells (Auto) (0-5) /lpf Urine Bacteria (Auto) (Negative) Nasal Screen MRSA (PCR) (Negative) COVID-19 PCR (Negative) SARS-CoV-2 RNA (RT-PCR) 11/08/19 11/08/19 Range/Units 20:40 19:45 WBC (4.8-10.8) K/uL RBC (4.7-6.1) M/uL Hgb (14.0-18.0) g/dL Hct (42-52) % MCV (80-100) fL MCH (25-34) pg MCHC (32-36) g/dL RDW Std Deviation (36.4-46.3) fL RDW Coeff of Bee (11.5-14.5) % Plt Count (130-400) K/uL MPV (7.4-10.4) fL Immature Gran % (Auto) % Neut % (Auto) % Lymph % (Auto) % [place] % (Auto) % Eos % (Auto) % Baso % (Auto) % Neut # (Auto) (1.4-6.5) K/uL Lymph # (Auto) (1.2-3.4) K/uL [place] # (Auto) (0.11-0.59) K/uL Eos # (Auto) (0-0.5) K/uL Baso # (Auto) (0-0.2) K/uL Immature Gran # (Auto) (0.00-0.02) K/uL PT (9.0-12.0) Seconds INR (0.9-1.1) APTT (21.0-31.0) Seconds PTT Ratio Sodium (136-145) mmol/L Potassium (3.5-5.1) mmol/L Chloride (98-107) mmol/L Carbon Dioxide (21-32) mmol/L Anion Gap (3-11) BUN (7-18) mg/dl Creatinine (0.6-1.4) mg/dl Est Cr Clr Drug Dosing ml/min Est GFR ( Amer) Est GFR (Non-Af Amer) BUN/Creatinine Ratio (10-20) Glucose (70-99) mg/dl Calcium (8.5-10.1) mg/dl Phosphorus (2.5-4.9) mg/dl Magnesium (1.8-2.4) mg/dl Total Bilirubin (0.2-1) mg/dl AST (15-37) U/L ALT (12-78) U/L Alkaline Phosphatase (45-117) U/L Total Protein (6.4-8.2) gm/dl Albumin (3.4-5.0) gm/dl Globulin (2.5-4.0) gm/dl Albumin/Globulin Ratio (0.9-2) Cortisol AM Sample (4.3-22.4) mcg/dl Urine Color Yellow Urine Appearance Cloudy A (Clear) Urine pH >= 9.0 H (4.5-7.5) Ur Specific [place] > 1.045 H (1.000-1.030) Urine Protein Negative (Negative) Urine Glucose (UA) Negative (Negative) Urine Ketones Negative (Negative) Urine Blood Negative (Negative) Urine Nitrite Negative (Negative) Urine Bilirubin Negative (Negative) Urine Urobilinogen Negative (Negative) Ur Leukocyte Esterase Negative (Negative) Urine WBC (Auto) 1-5 (0-5) /hpf Urine RBC (Auto) 0-4 (0-4) /hpf U Hyaline Cast (Auto) 0 (0-5) /lpf U Epithel Cells (Auto) 5-10 H (0-5) /lpf Urine Bacteria (Auto) Negative (Negative) Nasal Screen MRSA (PCR) Negative (Negative) COVID-19 PCR (Negative) SARS-CoV-2 RNA (RT-PCR) Diagnostic Findings 11/07 CHEST CTA IMPRESSION: 1. There is no evidence of pulmonary embolus in the main, lobar, or segmental pulmonary arteries. 2. There is masslike consolidation now seen in the paramediastinal right lower lobe at the lung base. This is new from 02/12/2019, and likely represents pneumonia. Follow-up to resolution is recommended. 3. Foci of nodularity/consolidation in the left upper lobe or also seen previously. 4. There are new subcentimeter foci of consolidation in the left lower lobe, as well as extensive groundglass consolidation throughout both lung bases. This is also likely on an infectious/inflammatory basis. Clinical correlation will be required and pulmonology follow-up for all of the above findings is recommended. 5. There is a trace right pleural effusion. 6. Additional findings as above. PG Care Time/CCT Total # of Minutes Spent Total Time Spent with Patient: Total time spent is greater than 50% in coordination of care (as documented) at patient's floor/unit and/or counseling patient: Coding Level of Care Code 75931 Subseq Hosp Care Lvl 3 Diagnoses Pneumonia J18.9 Laterality: bilateral Lung location: lower lobe of lung Pneumonia type: due to unspecified organism Hemoptysis R04.2 Dehydration E86.0 Acute hypotension I95.9 Weakness R53.1 Inclusion body myositis G72.41 Severe protein-calorie malnutrition E43 Status post insertion of percutaneous endoscopic gastrostomy (PEG) tube Z93.1 Hypokalemia E87.6 DVT prophylaxis Z29.9 (1) Pneumonia Laterality: bilateral Lung location: lower lobe of lung Pneumonia type: due to unspecified organism Qualified Code(s): J18.9 - Pneumonia, unspecified organism
[2019-11-09] MEDS ORDERED: FIBERSOURCE HN 1.2 CAL 1000 ML BAG GT SCH (17:00)
[2019-11-10] MEDS: PIPERACILLIN/TAZOBACTAM 3.375 GM in DEXTROSE 5% 100 ML IV SCH ×4 (00:11→23:31)
[2019-11-10 06:30] LABS: Basophils # (auto) 0.04 K/uL (0-0.2); Basophils % (auto) 0.5 %; Eosinophils # (auto) 0.22 K/uL (0-0.5); Hematocrit (blood only) 38.9 % (42-52); Hemoglobin 12.5 g/dL (14.0-18.0); Immature Granulocytes # (auto) 0.01 K/uL (0.00-0.02); Immature Granulocytes % (auto) 0.1 %; Lymphocytes # (auto) 1.95 K/uL (1.2-3.4); Lymphocytes % (auto) 26.7 %; Mean Corpuscular Hemoglobin 28.9 pg (25-34); Mean Corpuscular Hgb Conc 32.1 g/dL (32-36); Mean Platelet Volume 9.5 fL (7.4-10.4); Monocytes # (auto) 0.66 K/uL (0.11-0.59); Monocytes % (auto) 9.1 %; Neutrophils # (auto) 4.41 K/uL (1.4-6.5); Neutrophils % (auto) 60.6 %; Platelet Count 281 K/uL (130-400); RDW Coefficient of Variation 14.8 % (11.5-14.5); RDW Standard Deviation 49.5 fL (36.4-46.3); Red Blood Count 4.32 M/uL (4.7-6.1); White Blood Count 7.29 K/uL (4.8-10.8)
[2019-11-10] MEDS: ENTERAL FEEDING PO SCH ×2 (06:35→10:06)
[2019-11-10 06:36] LABS: Prothrombin Time 19.9 Seconds (9.0-12.0)
[2019-11-10 07:13] LABS: Albumin Globulin Ratio 0.4 (0.9-2); Albumin Level 2.1 gm/dl (3.4-5.0); BUN Creatinine Ratio 32.1 (10-20); Bilirubin,Total 0.4 mg/dl (0.2-1); Calcium 8.5 mg/dl (8.5-10.1); Est GFR (African American) 140.3; Globulin 5.3 gm/dl (2.5-4.0); Magnesium 1.9 mg/dl (1.8-2.4); Phosphorus 2.6 mg/dl (2.5-4.9); Total Protein 7.4 gm/dl (6.4-8.2)
[2019-11-10] MEDS: D5W AND 1/2NSS + 30MEQ KCL 30 MEQ/1,000 ML BAG IV SCH ×2 (10:06→21:56)
--- NOTE | 2019-11-10 11:16 | Hospitalist Progress Note ---
Date of Service November 10, 2019 Assessment & Plan (1) Pneumonia: * Imaging convincing of PNA however not overly symptomatic and may purely be aspiration (still drinking coffee despite PEG tube placement) * Continue Zosyn 3.75mg Q8H * Supplemental O2 as needed -- currently 95% on RA * Nasal MRSA swab negative * BCx -- ngtd -- follow * Sputum culture with heavy normal atul, final report to follow * Pulmonary on consult -- appreciate assistance Plan for fiberoptic bronchoscopy. Will continue to hold Coumadin and proceed once INR <1.5. (Likely will not be until or Saturday). 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 No longer taking these medications as per the patient. Diagnosed byt Dr. Nathan [facility] June 2018 per outpatient notes * Spoke with Rheumatology --> unless need for urgent evaluation, may call Dr. Perez once patient discharged (was previously scheduled this Saturday, 11/10 and had 2 no shows) and he will see about getting him in sooner for follow-up. Will reach out if needs more emergent evaluation * ?muscular problem causing him to feel like he cannot take deep breaths. Palliative care consulted -- patient agreeable for hospice at discharge. 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 gravity urine. BUN increased from prior although Cr appears stable he has had significant weight loss since his last lab test in Jan 2019. * Continue IVF -- D5W 1/2 NSS + 30 meq KCl at 80ml/hr for now (5) Acute hypotension: * Mild low BP (previously on anti-hypertensives prior to stopping them in June -- BP stable low at 101/66 * Continue IV fluids only as long as mean arterial pressure > 65. * Cortisol level in AM given prior chronic steroid use and unclear when he stopped this--> 9.54 * Continue to monitor (6) Weakness: * PT/OT josé miguel, pt uses walked at home (7) Severe protein-calorie malnutrition: * Consult dietary for enteral feeding through PEG tube (lactose-free formula at home). Trialed fibersource yesterday with increased diarrhea. * EN regimen changed to Peptamen 1.5 @ 25 ml/hr to advance as tolerated to goal rate of 45 ml/hr continuous for 1080mL TV, 1620 kcal (37 kcal/kg), 73 g protein (1.7 g protein/kg) & 834 ml free H2O + 200 ml free H2O flushes q 6 hr. * Also, 1 pkt of Prosource to be given via PEG tube once daily to provide add'l 60 kcal & 15 g protein. * Please flush his PEG tube with 60 ml H2O before and after administering the Prosource pkt. * Of note, patient was not giving himself enough free H2O flushes at home, despite written instructions as received outpatient 09/30 Palliative consulted -- see above. (8) Status post insertion of percutaneous endoscopic gastrostomy (PEG) tube: * Secondary to dysphagia with inclusion body myositis (9) Hypokalemia: * K 3.2 -- already receiving in IVF --> will order additional 2 K riders * RESOLVED -- K 4.0 * Repeat labs in AM (10) Chest pain: * "Chest heaviness and work of breathing reported this morning". No further episodes. Trop <0.015. EKG unchanged * Most recent ECHO 2018 -- low normal systolic function. 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 * Given severe protein-calorie malnutrition SCDs risk > benefit - especially as may just move DVTs he previously had Dispo: bronchoscopy with Dr. Butts once INR <1.5. Continue abx, supportive treatment for now Admission and Anticipated Discharge Date Admission Date: November 08, 2019 Supervising Physician Co-Signing Physician Notes Attending Attestation: Chart reviewed in detail, care plan d/w KIANA Patton. I agree w/ the hutchins components of her documentation. 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 Here with extensive pneumonia - likely aspiration- due to known dysphagia. COVID-19 testing negative. Cont antibiotics. Pulmonary consultation appreciated. To have bronchoscopy once INR has trended to <1.5. Brandyn Kim MD Subjective Patient with reported diarrhea with Fibersource yesterday. Met with milanese knitting machine operator this morning to change around feeding. Some diarrhea this morning. Feeling weak. States he did have episode of chest discomfort that last a couple seconds and when asked, he describes it has more of a heaviness and "work of breathing." Sat 95% on RA. No further episodes cp, sob reported. Hemoptysis x 2 this morning. Discussed INR still not at level for procedure. He states he spoke with pulmonary this morning and is aware they are waiting for it to be <=1.5. When asked about if he had seen Palliative Care, he is unsure but he does note "I know I have a disease that will only get worse" and that he would be ok if the quality of life was good that he had left as this is the most important factor for him. Denies fevers, chills currently. No nausea at this time. Review of Systems Review of Systems: All systems reviewed & are unremarkable except as noted in HPI & below Physical Exam Constitutional: + thin and + cachectic; + not well nourished and no acute distress Eyes: + anicteric sclerae and PERRL ENMT: Ears: no hearing impairment Nose: no external nose abnormality Respiratory: no respiratory distress, does not use accessory muscles and + not able to speak in complete sentence Auscultation: + diminished lung sounds Cardiovascular: Rate/Rhythm: regular rate and regular rhythm Heart Sounds: no murmur and no cardiac rub Vessels: no JVD Extremities: no edema quiet HS Gastrointestinal (Abdomen): Inspection/Auscultation: normal bowel sounds Percussion/Palpation: abdomen soft; abdomen nontender PEG present. no evidence of erythema/drainage Musculoskeletal: muscle atrophy weakness L>R Skin: dry Neurologic: patellar DTR's 2+ bilat, sensation intact R facial droop Psychiatric: Orientation: alert, oriented x 3 and cooperative Lymphatic: no cervical or axillary lymphadenopathy Results & Data Results & Data ([facility]) Vital Signs (Past 12 Hours) Vital Signs Temp Pulse Pulse Resp BP Pulse Ox 11/10/19 08:00 36.2 C L 70 16 111/71 98 11/10/19 03:50 36.7 C 72 18 104/66 97 11/10/19 00:53 67 11/09/19 23:54 36.6 C 74 18 118/71 98 Laboratory Results 11/10/19 11/10/19 11/10/19 Range/Units 13:30 05:54 05:54 WBC 7.29 (4.8-10.8) K/uL RBC 4.32 L (4.7-6.1) M/uL Hgb 12.5 L (14.0-18.0) g/dL Hct 38.9 L (42-52) % MCV 90.0 (80-100) fL MCH 28.9 (25-34) pg MCHC 32.1 (32-36) g/dL RDW Std Deviation 49.5 H (36.4-46.3) fL RDW Coeff of Bee 14.8 H (11.5-14.5) % Plt Count 281 (130-400) K/uL MPV 9.5 (7.4-10.4) fL Immature Gran % (Auto) 0.1 % Neut % (Auto) 60.6 % Lymph % (Auto) 26.7 % [place] % (Auto) 9.1 % Eos % (Auto) 3.0 % Baso % (Auto) 0.5 % Neut # (Auto) 4.41 (1.4-6.5) K/uL Lymph # (Auto) 1.95 (1.2-3.4) K/uL [place] # (Auto) 0.66 H (0.11-0.59) K/uL Eos # (Auto) 0.22 (0-0.5) K/uL Baso # (Auto) 0.04 (0-0.2) K/uL Immature Gran # (Auto) 0.01 (0.00-0.02) K/uL PT 19.9 H (9.0-12.0) Seconds INR 2.0 H (0.9-1.1) Sodium (136-145) mmol/L Potassium (3.5-5.1) mmol/L Chloride (98-107) mmol/L Carbon Dioxide (21-32) mmol/L Anion Gap (3-11) BUN (7-18) mg/dl Creatinine (0.6-1.4) mg/dl Est Cr Clr Drug Dosing ml/min Est GFR ( Amer) Est GFR (Non-Af Amer) BUN/Creatinine Ratio (10-20) Glucose (70-99) mg/dl Calcium (8.5-10.1) mg/dl Phosphorus (2.5-4.9) mg/dl Magnesium (1.8-2.4) mg/dl Total Bilirubin (0.2-1) mg/dl AST (15-37) U/L ALT (12-78) U/L Alkaline Phosphatase (45-117) U/L Troponin I < 0.015 (0-0.045) ng/ml Total Protein (6.4-8.2) gm/dl Albumin (3.4-5.0) gm/dl Globulin (2.5-4.0) gm/dl Albumin/Globulin Ratio (0.9-2) 11/10/19 Range/Units 05:54 WBC (4.8-10.8) K/uL RBC (4.7-6.1) M/uL Hgb (14.0-18.0) g/dL Hct (42-52) % MCV (80-100) fL MCH (25-34) pg MCHC (32-36) g/dL RDW Std Deviation (36.4-46.3) fL RDW Coeff of Bee (11.5-14.5) % Plt Count (130-400) K/uL MPV (7.4-10.4) fL Immature Gran % (Auto) % Neut % (Auto) % Lymph % (Auto) % [place] % (Auto) % Eos % (Auto) % Baso % (Auto) % Neut # (Auto) (1.4-6.5) K/uL Lymph # (Auto) (1.2-3.4) K/uL [place] # (Auto) (0.11-0.59) K/uL Eos # (Auto) (0-0.5) K/uL Baso # (Auto) (0-0.2) K/uL Immature Gran # (Auto) (0.00-0.02) K/uL PT (9.0-12.0) Seconds INR (0.9-1.1) Sodium 141 (136-145) mmol/L Potassium 4.0 D (3.5-5.1) mmol/L Chloride 112 H (98-107) mmol/L Carbon Dioxide 24 (21-32) mmol/L Anion Gap 5.0 (3-11) BUN 11 (7-18) mg/dl Creatinine 0.35 L (0.6-1.4) mg/dl Est Cr Clr Drug Dosing 110.0 ml/min Est GFR ( Amer) 140.3 Est GFR (Non-Af Amer) 121.0 BUN/Creatinine Ratio 32.1 H (10-20) Glucose 85 (70-99) mg/dl Calcium 8.5 (8.5-10.1) mg/dl Phosphorus 2.6 (2.5-4.9) mg/dl Magnesium 1.9 (1.8-2.4) mg/dl Total Bilirubin 0.4 (0.2-1) mg/dl AST 34 (15-37) U/L ALT 47 (12-78) U/L Alkaline Phosphatase 86 (45-117) U/L Troponin I (0-0.045) ng/ml Total Protein 7.4 (6.4-8.2) gm/dl Albumin 2.1 L (3.4-5.0) gm/dl Globulin 5.3 H (2.5-4.0) gm/dl Albumin/Globulin Ratio 0.4 L (0.9-2) PG Care Time/CCT Total # of Minutes Spent Total Time Spent with Patient: Total time spent is greater than 50% in coordination of care (as documented) at patient's floor/unit and/or counseling patient: Coding Level of Care Code 43520 Subseq Hosp Care Lvl 3 Diagnoses Pneumonia J18.9 Laterality: bilateral Lung location: lower lobe of lung Pneumonia type: due to unspecified organism Hemoptysis R04.2 Inclusion body myositis G72.41 Dehydration E86.0 Acute hypotension I95.9 Weakness R53.1 Severe protein-calorie malnutrition E43 Status post insertion of percutaneous endoscopic gastrostomy (PEG) tube Z93.1 Hypokalemia E87.6 Chest pain R07.9 DVT prophylaxis Z29.9 (1) Pneumonia Laterality: bilateral Lung location: lower lobe of lung Pneumonia type: due to unspecified organism Qualified Code(s): J18.9 - Pneumonia, unspecified organism
[2019-11-10] MEDS: PEPTAMEN 1.5 CAL 1,000 ML BAG PEG SCH (11:57)
--- NOTE | 2019-11-10 12:55 | Pulmonology Progress Note ---
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 Review of his CT scan from August demonstrates that this is a new finding which would be a very rapid progression for malignancy. Pneumonia is the most likely diagnosis at this time. The patient does have significant debris noted in his tracheobronchial tree likely secondary to his swallowing dysfunction which may have predisposed him to pneumonia. The mediastinal lymph node appears unchanged when compared to prior CT scan from January 2019. Recommendations: 1. Hemoptysis: This is improving per the report of the patient. Suspect this is secondary to pneumonia with underlying anticoagulation. INR today is 2.0 given the debris and some nodular densities noted within the airway, I do recommend fiberoptic bronchoscopy. Coumadin has been held and INR is trending down. We will proceed with bronchoscopy once INR is less than 1.5. 2. Abnormal CT scan: Likely aspiration pneumonia: Cultures currently pending. Patient is currently day #3 Zosyn. 3. History of PE: Seems reasonable to stop anticoagulation for now and observe clinically. No evidence of recurrent PE on his current film. We had medication previously for lifelong anticoagulation. 4. The patient's mediastinal lymph node has been stable dating back to January. This suggests a low suspicion for malignancy. In addition the patient has CT the abdomen which did not current findings back in August and 2-month well I would be very rapid to develop the side of a malignancy. An inflammatory or infectious etiology is favored. Thank you very much for including us in the care of this patient. We will continue to watch his INR and when it approaches 1.5, will plan on scheduling bronchoscopy. I suspect that this will not be until or Saturday at the earliest. We will continue to follow along with you. Please refer to Dr. Butts's addendum for further recommendations. (2) Hemoptysis: (3) Pneumonia: Admission and Anticipated Discharge Date Admission Date: November 08, 2019 Supervising Physician Co-Signing Physician Notes agree with A/P as noted. Subjective Attending: Dr. Butts Patient with diarrhea this morning. Cachectic. Oxygenating well on room air. No acute complaints. INR remains at 2.0. Patient is aware that plan will be to consider bronchoscopy when INR is at or below 1.5 Patient has no acute complaints Review of Systems Review of Systems: All systems reviewed & are unremarkable except as noted in HPI & below Physical Exam Physical Exam: GENERAL : No acute distress. Cachectic appearing EYES: No icterus, gaze conjugate NOSE: No evidence of epistaxis MOUTH: No lesions or candidiasis NECK: Supple LUNGS: CTA B/L, no wheezes, rales or rhonchi HEART: Regular, rate controlled ABDOMEN: Soft, NT, ND, BS Present EXTREMITIES: No LE edema, pedal pulses intact and equal bilaterally NEURO: A&OX3 Results & Data Results & Data ([facility]) Vital Signs (Past 12 Hours) Vital Signs Temp Pulse Resp BP Pulse Ox 11/10/19 12:00 36.6 C 62 16 101/67 97 11/10/19 08:00 36.2 C L 70 16 111/71 98 11/10/19 03:50 36.7 C 72 18 104/66 97 Laboratory Results 11/10/19 05:54 11/10/19 05:54 Diagnostic Findings No further radiologic studies since 11/08/2019 PG Care Time/CCT Total # of Minutes Spent Total Time Spent with Patient: Total time spent is greater than 50% in coordination of care (as documented) at patient's floor/unit and/or counseling patient: 20 minutes Coding Level of Care Code 93272 Subseq Hosp Care Lvl [address] scan of lung R91.8 Hemoptysis R04.2 Pneumonia J18.9 Time Spent (min) 20
--- NOTE | 2019-11-10 14:53 | Palliative Care Consultation ---
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 Patient does is on PEG tube feeds-amount and frequency very at times, patient reports frequent diarrhea-states "when I stand up it just runs out of me". Patient states he does drink coffee at times, does report it frequently goes down the wrong way, sometimes he can cough it back up. Patient understands that his underlying disease of inclusion body myositis is progressive-reports increasing weakness. -Patient seen in room 283-2, no friends or family at bedside. Patient awake, alert and oriented x4. -Patient lives with his friend, Sixto Thomas, who he names as his healthcare surrogate. He does not have paperwork stating such-gave patient healthcare surrogate form to fill out and a give copy to Sixto. -Patient has 4 children-they live in [place], [place] and two in [place] -they do not have much contact with the patient. He does not want his children involved in his medical decision making at all. -Discussed patient's medical issues-as well as his continued decline. He acknowledges that none of his problems are "fixable". He also admits that coming to the hospital is becoming less and less helpful-discussed going home with hospice-patient agreeable. We will have case management make referral. Patient's hospice diagnosis would be protein calorie malnutrition with his inclusion body myositis is secondary. -Patient agreeable to continue further investigation of his pulmonary status as well as have the bronchoscopy planned for tomorrow. -Discussed the possibility of using different tube feeds that may have more fiber and cause less diarrhea-patient did voice interest. Review of chart showed that patient's weight was 130 pounds in January 2019, is dropped 201 pounds the end of September, 97 pounds on admission. -Patient aware he should not take anything by mouth-enjoys his coffee, discussed using mouth swabs to enjoy the taste of coffee without having to swallow it. -Patient continues to have shortness of breath especially with conversation and exertion-this may be related to his inclusion body myositis with increased muscle weakness and atrophy. -Patient confirmed his current CODE STATUS is DNR (2) Inclusion body myositis: Slowly degenerative disease-contributing to his weakness, was on prednisone in the past (3) Dysphagia: History of TIA/CVA, increased weakness due to inclusion body myositis-now PEG tube dependent. Discussed using mouth swabs to enjoy his coffee rather than taking it by mouth and aspirating (4) Status post insertion of percutaneous endoscopic gastrostomy (PEG) tube: Patient would benefit from a tube feeds with fiber to decrease diarrhea (5) Severe protein-calorie malnutrition: Contributing to his weakness. Patient does not tolerate his tube feeds well-having frequent diarrhea. Would benefit from a change in tube feeds to see if loose stools improve or addition of fiber supplement (6) TIA (transient ischemic attack): History of multiple TIAs/CVA-continues to have right facial droop and left-sided weakness greater than right. Was on Coumadin at home-discontinued due to hemoptysis (7) History of pulmonary embolism: No current evidence of PE on recent scans-was on Coumadin at home, on hold due to hemoptysis History of Present Illness Reason for Consultation: Address goals of care Requesting Physician: Dr. 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 Patient does is on PEG tube feeds-amount and frequency very at times, patient reports frequent diarrhea-states "when I stand up it just runs out of me". Patient states he does drink coffee at times, does report it frequently goes down the wrong way, sometimes he can cough it back up. Patient understands that his underlying disease of inclusion body myositis is progressive-reports increasing weakness. -Patient seen in room 283-2, no friends or family at bedside. Patient awake, alert and oriented x4. -Patient lives with his friend, Sixto Thomas, who he names as his healthcare surrogate. He does not have paperwork stating such-gave patient healthcare [place] rrogate form to fill out and a give copy to Sixto. -Patient has 4 children-they live in [place], [place] and two in [place] -they do not have much contact with the patient. He does not want his children involved in his medical decision making at all. -Discussed patient's medical issues-as well as his continued decline. He acknowledges that none of his problems are "fixable". He also admits that coming to the hospital is becoming less and less helpful-discussed going home with hospice-patient agreeable. We will have case management make referral. Patient's hospice diagnosis would be protein calorie malnutrition with his inclusion body myositis is secondary. -Patient agreeable to continue further investigation of his pulmonary status as well as have the bronchoscopy planned for tomorrow. -Discussed the possibility of using different tube feeds that may have more fiber and cause less diarrhea-patient did voice interest. Review of chart showed that patient's weight was 130 pounds in January 2019, is dropped 201 pounds the end of September, 97 pounds on admission. -Patient aware he should not take anything by mouth-enjoys his coffee, discussed using mouth swabs to enjoy the taste of coffee without having to swallow it. -Patient continues to have shortness of breath especially with conversation and exertion-this may be related to his inclusion body myositis with increased muscle weakness and atrophy. -Patient confirmed his current CODE STATUS is DNR Allergies Allergy/AdvReac Type Severity Reaction Status Date / Time fentanyl Allergy Severe Seizure Verified 11/08/19 14:03 propofol Allergy Severe Seizure Verified 11/08/19 14:03 Home Medications Home Medications Medication Instructions Recorded Confirmed Type food supplemt, lactose-reduced 1 ea PO QID ml 10/28/19 11/08/19 History 0.08 gram-1.5 kcal/mL oral liquid calcium carbonate-vitamin D3 1 tab PO QAM 11/08/19 11/08/19 History [Calcium 600 + D(3)] food supplemt, lactose-reduced 1 ea PO QID 11/08/19 11/08/19 History [Ensure] warfarin [Coumadin] 5 mg PO 5XWK 11/08/19 11/08/19 History warfarin [Coumadin] 7.5 mg PO 2XWK 11/08/19 11/08/19 History Patient History Medical History Dysphagia HTN (hypertension) Inclusion body myositis Raynauds disease Severe protein-calorie malnutrition TIA (transient ischemic attack) Family History Other Family history non-contributory Social History Smoking Status: Former smoker Smoking End Date: quit 30-40 years ago; Hx Alcohol Use: No Hx Substance Use: No Preferred Language: Ukrainian Communication Ability: Effective Casing Flusher Required: No Beliefs That Will Affect Care: None Current Living Situation: Other Current Living Situation Comment: lives with roommate Other Information That Helps Us Care for You: No Feels Safe at Home: Yes Safety Concerns: Feels Safe At This Time Review of Systems Review of Systems: Patient denies fever, chills, abdominal pain Positive for shortness of breath, dysphasia, weakness, weight loss, loose stools Physical Exam Physical Exam: PE: Patient awake and alert, no acute distress at rest, increased shortness of breath with conversation. HEENT: EOMI, hearing within normal limits Respirations: Clear breath sounds bilaterally, no rhonchi or wheezes CV: Regular rate, no edema Abdomen: Soft, nontender, PEG tube in place Extremities: Generalized weakness, left slightly greater than right, cachectic Neuro: Alert and oriented x4 Results & Data Vital Signs (Past 12 Hours) Vital Signs Temp Pulse Resp BP Pulse Ox 11/10/19 12:00 97.9 F 62 16 101/67 97 11/10/19 08:00 97.2 F L 70 16 111/71 98 11/10/19 03:50 98.1 F 72 18 104/66 97 PG Care Time/CCT Total # of Minutes Spent Total Time Spent with Patient: Total time spent 70 minutes with greater than 50% of time spent at bedside discussing patient's current condition and goals of care. Assisting patient with naming his healthcare surrogate Coding Level of Care Code 48496 Inpt Consult Level 3 Diagnoses Goals of care, counseling/discussion Z71.89 Inclusion body myositis G72.41 Dysphagia R13.10 Status post insertion of percutaneous endoscopic gastrostomy (PEG) tube Z93.1 Severe protein-calorie malnutrition E43 TIA (transient ischemic attack) G45.9 History of pulmonary embolism Z86.711 Time Spent (min) 70
[2019-11-11 07:28] LABS: Basophils # (auto) 0.04 K/uL (0-0.2); Basophils % (auto) 0.8 %; Eosinophils # (auto) 0.28 K/uL (0-0.5); Eosinophils % (auto) 5.6 %; Hematocrit (blood only) 39.3 % (42-52); Hemoglobin 12.8 g/dL (14.0-18.0); Lymphocytes # (auto) 1.94 K/uL (1.2-3.4); Lymphocytes % (auto) 38.6 %; Mean Corpuscular Hemoglobin 29.5 pg (25-34); Mean Corpuscular Hgb Conc 32.6 g/dL (32-36); Mean Corpuscular Volume 90.6 fL (80-100); Mean Platelet Volume 9.2 fL (7.4-10.4); Monocytes # (auto) 0.45 K/uL (0.11-0.59); Monocytes % (auto) 8.9 %; Neutrophils # (auto) 2.32 K/uL (1.4-6.5); Neutrophils % (auto) 46.1 %; Platelet Count 278 K/uL (130-400); RDW Standard Deviation 49.8 fL (36.4-46.3); Red Blood Count 4.34 M/uL (4.7-6.1); White Blood Count 5.03 K/uL (4.8-10.8)
[2019-11-11 07:40] LABS: INR 1.4 (0.9-1.1); Prothrombin Time 14.6 Seconds (9.0-12.0)
[2019-11-11 07:56] LABS: BUN Creatinine Ratio 28.1 (10-20); Calcium 9.1 mg/dl (8.5-10.1); Creatinine Clr Calc Pharmacy 97.1 ml/min; Est GFR (African American) 132.8; Est GFR (Non-African American) 114.6; Potassium 4.1 mmol/L (3.5-5.1)
[2019-11-11 08:01] LABS: C Reactive Protein 1.81 mg/dl (0-0.29); Phosphorus 2.9 mg/dl (2.5-4.9); Prealbumin 11.8 mg/dl (20-40)
[2019-11-11] MEDS: PIPERACILLIN/TAZOBACTAM 3.375 GM in DEXTROSE 5% 100 ML IV SCH ×3 (08:07→23:45)
[2019-11-11] MEDS: PROSOURCE NO CARB 30 ML/PKT PEG SCH (08:07)
[2019-11-11] MEDS: D5W AND 1/2NSS + 30MEQ KCL 30 MEQ/1,000 ML BAG IV SCH ×2 (10:47→23:11)
--- NOTE | 2019-11-11 12:17 | Pulmonology Progress Note ---
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 Review of his CT scan from August demonstrates that this is a new finding which would be a very rapid progression for malignancy. Pneumonia is the most likely diagnosis at this time. The patient does have significant debris noted in his tracheobronchial tree likely secondary to his swallowing dysfunction which may have predisposed him to pneumonia. The mediastinal lymph node appears unchanged when compared to prior CT scan from January 2019. Recommendations: 1. Hemoptysis: This Continues to improve. Most likely secondary to pneumonia with underlying anticoagulation. INR today is 1.4 given the debris and some nodular densities noted within the airway, I do recommend fiberoptic bronchoscopy. Coumadin has been held and INR is trending down. We will proceed with bronchoscopy later today. 2. Abnormal CT scan: Likely aspiration pneumonia: Patient is receiving tube feeds via PEG tube. Discussed sitting as upright as possible with feedings. Sputum cultures with heavy normal atul. Patient is currently day #4 Zosyn. 3. History of PE: Seems reasonable to hold anticoagulation for now and observe clinically. No evidence of recurrent PE on his current film. INR today is 1.4. 4. The patient's mediastinal lymph node has been stable dating back to January. This suggests a low suspicion for malignancy. An inflammatory or infectious etiology is favored. Thank you very much for including us in the care of this patient. We will continue to follow. We will continue to follow along with you. Please refer to Dr. Butts's addendum for further recommendations. (2) Hemoptysis: (3) Pneumonia: Admission and Anticipated Discharge Date Admission Date: November 08, 2019 Supervising Physician Co-Signing Physician Notes Seen and examined. Bronchoscopy set up for this afternoon. Continue antibiotics for presumptive pneumonia. Subjective Attending: Dr. Butts Patient seen and examined at bedside. He is sitting in the bedside chair. He seems to be doing better from a pulmonary standpoint. He does not seem to be in any distress.He has no hemoptysis. He states that he has minimal cough.He was having watery diarrhea yesterday. This is improved and he has had 1 bowel movement today. He denies any incontinence.He denies any fever or chills. He has no other acute complaints.He is oxygenating well on room air with an SaO2 of 97%. Review of Systems Review of Systems: All systems reviewed & are unremarkable except as noted in HPI & below Physical Exam Physical Exam: GENERAL : No acute distress EYES: No icterus, gaze conjugate NOSE: No evidence of epistaxis MOUTH: No lesions or candidiasis NECK: Supple LUNGS: CTA B/L, no wheezes, rales or rhonchi HEART: Regular, rate controlled ABDOMEN: Soft, NT, ND, BS Present EXTREMITIES: No LE edema, pedal pulses intact NEURO: A&OX3 Results & Data Results & Data ([facility]) Vital Signs (Past 12 Hours) Vital Signs Temp Pulse Pulse Resp BP BP Pulse Ox 11/11/19 11:40 36.4 C L 66 20 103/66 97 11/11/19 08:00 36.4 C L 67 18 103/67 99 11/11/19 04:00 36.5 C 75 18 105/64 99 11/11/19 02:37 64 11/11/19 00:16 36.9 C 85 18 105/61 92 Laboratory Results 11/11/19 06:30 11/11/19 06:30 Diagnostic Findings No further Radiographic testing since 11/08/2019 PG Care Time/CCT Total # of Minutes Spent Total Time Spent with Patient: Total time spent is greater than 50% in coordination of care (as documented) at patient's floor/unit and/or counseling patient:30 minutes independent of any procedures Coding Level of Care Code 91448 Subseq Hosp Care Lvl [address] scan of lung R91.8 Hemoptysis R04.2 Pneumonia J18.9 Time Spent (min) 30
--- NOTE | 2019-11-11 13:06 | History & Physical Bridge Note ---
Date of Service November 11, 2019 History & Physical Bridge Note I have examined the patient, reviewed the History & Physical and in the interval since the performance of the History & Physical I have noted the following changes of clinical significance: no changes noted
--- NOTE | 2019-11-11 13:16 | Pre Anesthesia Assessment ---
Date of Service November 11, 2019 Pre Sedation Assessment Vital Signs Temp Pulse Pulse Resp BP BP Pulse Ox 11/11/19 11:40 36.4 C L 66 20 103/66 97 11/11/19 08:00 36.4 C L 67 18 103/67 99 11/11/19 04:00 36.5 C 75 18 105/64 99 11/11/19 02:37 64 11/11/19 00:16 36.9 C 85 18 105/61 92 11/10/19 19:19 37.0 C 71 19 104/63 98 11/10/19 15:18 74 11/10/19 15:00 36.5 C 66 16 101/66 95 Pre-Sedation Airway Assessment Smoking Status: Former smoker Notes The planned sedation has been discussed with the patient. Informed Consent was obtained. I have identified the patient, determined the appropriateness of sedation and have assessed the patient immediately prior to the procedure. All medicine(s) and interventions are by my order.
[2019-11-11] MEDS ORDERED: OXYMETAZOLINE 0.05% 30 ML BTL ONE (14:12)
[2019-11-11] MEDS ORDERED: LIDOCAINE HCL VISCOUS SOLN 2% 15 ML UDC MT ONE (14:12)
[2019-11-11] MEDS ORDERED: LIDOCAINE 4% INH SOLN 4 ML BTL NAE ONE (14:12)
[2019-11-11] MEDS ORDERED: fentaNYL citrate 100 MCG/2 ML VIAL IV ONE (14:12)
[2019-11-11] MEDS ORDERED: LIDOCAINE HCL VISCOUS SOLN 2% 15 ML UDC TOP ONE (14:12)
[2019-11-11] MEDS ORDERED: MIDAZOLAM HCL 1 MG/ML 2ML VIAL IV ONE (14:14)
--- NOTE | 2019-11-11 14:23 | Procedure Note ---
Procedure Note: Bronchoscopy Procedure Procedure: Fiberoptic bronchoscopy Bronchoalveolar lavage Endobronchial brushing x2 Endobronchial biopsy single station Conscious sedation Provider: Ruel Butts MD Consent: Signed by patient and timeout verified prior to procedure. Sedation start: 134 Sedation end: 1406 Conscious sedation: 3 mg Versed, 12.5 mg fentanyl, topical lidocaine per RT protocol Procedure: Patient was brought to the bronchoscopy suite. Consent was verified. Appropriate radiographic studies had been reviewed prior to the procedure. Standard monitoring was applied. Oxygen was administered. After topical anesthesia of the airways per respiratory therapy protocol, the fiberoptic scope was advanced through the left nares. Oropharynx was unremarkable. Vocal cords were visualized and were visualized and normal in function and appearance. Topical anesthesia of the cords was achieved with instillation of lidocaine through the scope. Scope was then passed through the vocal cords. The trachea was tortuous. Main paige was sharp. Anesthesia of the lower airways was achieved with instillation of lidocaine through the scope. A sequential and systematic examination of the lower airways was conducted. The right-sided airways were erythematous and inflamed and the mucosa appeared normal. The right mainstem bronchus was patent as was the right upper lobe. The bronchus intermedius was unremarkable. Right middle lobe was patent. Descending into the right lower lobe, there was some mild narrowing of the superior segment and the medial basilar segment. There appeared to be some food material or lesion noted in the medial basilar segment of the right middle lobe. Please see photos. This was lavaged biopsied and brushed. Brushings and BAL were also conducted in the superior segment of the lower lobe. There were not significant mucopurulent secretions identified. Minimal bleeding was encountered with manipulation of the medial basilar segment of the right lower lobe but hemostasis was confirmed. Left-sided airways were erythematous and the mucosa appeared inflamed. The bronchoscope was then removed from the airways. The patient tolerated the procedure well without obvious complication. Patient was returned to the recovery room. Impression: 1. Mildly tortuous trachea 2. Diffuse erythema of the lower airways possibly consistent with chronic aspiration. 3. Particulate matter versus mass lesion in the medial segment of the right lower lobe. Upon lavage this was able to be removed and likely represented aspiration material. Biopsies and brushings were taken. 4. Minimal purulent secretions identified in the lower airway. Await microbiologic and cytologic analysis.
--- NOTE | 2019-11-11 14:46 | Post Anesthesia Assessment ---
Date of Service November 11, 2019 Post Sedation Assessment Vital Signs Temp Pulse Pulse Resp BP BP Pulse Ox 11/11/19 14:21 69 16 110/79 100 11/11/19 14:16 76 16 118/73 98 11/11/19 14:11 64 16 112/69 99 11/11/19 14:06 66 16 116/76 95 11/11/19 14:05 76 16 146/89 H 100 11/11/19 14:00 75 16 145/89 H 100 11/11/19 13:55 81 16 141/100 H 100 11/11/19 13:50 70 16 130/84 98 11/11/19 13:45 71 14 131/84 100 11/11/19 13:40 69 20 124/77 100 11/11/19 13:35 66 20 123/76 99 11/11/19 13:30 73 20 111/76 97 11/11/19 13:25 81 20 133/91 98 11/11/19 13:20 68 20 116/71 91 11/11/19 11:40 36.4 C L 66 20 103/66 97 11/11/19 08:00 36.4 C L 67 18 103/67 99 11/11/19 04:00 36.5 C 75 18 105/64 99 11/11/19 02:37 64 11/11/19 00:16 36.9 C 85 18 105/61 92 11/10/19 19:19 37.0 C 71 19 104/63 98 11/10/19 15:18 74 11/10/19 15:00 36.5 C 66 16 101/66 95 Recovery Score Activity: Moves 4 extremities Respiration: Deep Breath/Cough Circulation: +/-20% PreAnes Value Consciousness: Fully Awake Oxygen Saturation: O2 needed for >90% Post Anesthesia Score: 9 Discharge Sedation Level of Care: Fast Track Phase II Post Sedation Plan On clinical assessment, the patient appears to have tolerated the sedation without complications. Patient is recovering as anticipated. Patient will continue to be monitored by nursing and may be discharged when sedation discharge criteria are met per below protocol. Upon Completions of procedure up to 15 minutes continue every 5 minute vital signs and the P.A.R. score; then discharge to a Phase I or Fast Track to Phase II per the following guidelines: * Discharge Patient to appropriate Phase II area if PAR is 8 or greater or return to pre- procedure baseline. The post - procedure orders will be as directed. * If PAR score is less than 8 or not return to pre-procedure baseline then patient will follow Phase I monitoring till PAR is reached for Phase II. The Phase I may be done in procedure room or may call to secure a Phase I area. * If naloxone or flumazenil are used for reversal, hold in Phase I for continued monitoring from when last reversal dose was given for a minimum of 60 minutes or longer pending the nurse and/or physician discretion of patient condition before discharge to Phase II. Please call the Sedation Physician to re-evaluate and complete post-note for discharge to Phase II area. Do NOT discharge from procedure sedation or Phase 1 until post- sedation evaluation note is complete by procedure /sedation MD Sedation Discharge Instructions to be given to the patient at discharge to home.
--- NOTE | 2019-11-11 16:08 | Electrocardiogram Report ---
Test Reason : Blood Pressure : / mmHG Vent. Rate : 071 BPM Atrial Rate : 071 BPM P-R Int : 186 ms QRS Dur : 086 ms QT Int : 408 ms P-R-T Axes : 065 -74 075 degrees QTc Int : 443 ms Normal sinus rhythm Left axis deviation Low voltage QRS Possible Anterolateral infarct , age undetermined Abnormal ECG When compared with ECG of 12-FEB-2019 13:58, No significant change was found Confirmed by Carmelo Solis ([id number]) on 11/11/2019 4:08:20 PM Referred By: REFERRED SELF Confirmed By:Carmelo Solis
--- NOTE | 2019-11-11 16:09 | Hospitalist Progress Note ---
Date of Service November 11, 2019 Assessment & Plan (1) Pneumonia: * Imaging convincing of PNA however not overly symptomatic and may purely be aspiration (still drinking coffee despite PEG tube placement). COVID negative * Continue Zosyn 3.75mg Q8H (on day #4 of therapy) * Supplemental O2 as needed -- currently 95% on RA * Nasal MRSA swab negative * BCx -- ngtd -- follow * Sputum culture with heavy normal atul * Pulmonary on consult -- appreciate assistance Plan for fiberoptic bronchoscopy. Will continue to hold Coumadin and proceed once INR <1.5. INR 1.4 Plans for bronchoscopy this afternoon with Dr. 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 No longer taking these medications as per the patient. Diagnosed by[facility] June 2018 per outpatient notes * Spoke with Rheumatology --> unless need for urgent evaluation, may call Dr. Perez once patient discharged (was previously scheduled this Saturday, 11/10 and had 2 no shows) and he will see about getting him in sooner for follow-up. Will reach out if needs more emergent evaluation * ?muscular problem causing him to feel like he cannot take deep breaths. Palliative care consulted -- patient agreeable for hospice at discharge. 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 gravity urine. BUN increased from prior although Cr appears stable he has had significant weight loss since his last lab test in Jan 2019. * Continue IVF -- D5W 1/2 NSS + 30 meq KCl at 80ml/hr for now (5) Acute hypotension: * Improving, BP 130/84 * Mild low BP (previously on anti-hypertensives prior to stopping them in June -- BP stable low at 101/66 * Continue IV fluids only as long as mean arterial pressure > 65. * Cortisol level in AM given prior chronic steroid use and unclear when he stopped this--> 9.54 * Continue to monitor (6) Weakness: * PT/OT evals, pt uses walker at home (7) Severe protein-calorie malnutrition: * Consult dietary for enteral feeding through PEG tube (lactose-free formula at home). Trialed fibersource yesterday with increased diarrhea. * EN regimen changed to Peptamen 1.5 @ 25 ml/hr to advance as tolerated to goal rate of 45 ml/hr continuous for 1080mL TV, 1620 kcal (37 kcal/kg), 73 g protein (1.7 g protein/kg) & 834 ml free H2O + 200 ml free H2O flushes q 6 hr. * Also, 1 pkt of Prosource to be given via PEG tube once daily to provide add'l 60 kcal & 15 g protein. * Please flush his PEG tube with 60 ml H2O before and after administering the Prosource pkt. * Of note, patient was not giving himself enough free H2O flushes at home, despite written instructions as received outpatient 09/30 * Prealbumin low at 11.8 Palliative consulted -- see above. (8) Status post insertion of percutaneous endoscopic gastrostomy (PEG) tube: * Secondary to dysphagia with inclusion body myositis (9) Hypokalemia: * K 3.2 -- already receiving in IVF --> will order additional 2 K riders * RESOLVED -- K 4.1 * Repeat labs in AM (10) Chest pain: * "Chest heaviness and work of breathing reported this morning". No further episodes. Trop <0.015. EKG unchanged * Most recent ECHO 2018 -- low normal systolic function. 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 * Given severe protein-calorie malnutrition SCDs risk > benefit - especially as may just move DVTs he previously had Dispo: bronchoscopy with Dr. Butts this afternoon Admission and Anticipated Discharge Date Admission Date: November 08, 2019 Subjective Patient evaluated this morning. To undergo bronch this afternoon. States diarrhea less but still feeling fatigued. Hemoptysis x1 today but breathing slightly improved, stable. Denies shortness of breath at this time. Denies chest pain, abdominal pain, n/v, dysuria at this time. Review of Systems Review of Systems: All systems reviewed & are unremarkable except as noted in HPI & below Physical Exam Constitutional: + thin and + cachectic; + not well nourished and no acute distress Eyes: + anicteric sclerae and PERRL ENMT: Ears: no hearing impairment Nose: no external nose abnormality Respiratory: no respiratory distress and does not use accessory muscles Auscultation: + diminished lung sounds Cardiovascular: Rate/Rhythm: regular rate and regular rhythm Heart Sounds: no murmur and no cardiac rub Vessels: no JVD Extremities: no edema Gastrointestinal (Abdomen): Inspection/Auscultation: normal bowel sounds Percussion/Palpation: abdomen soft; abdomen nontender PEG present Neurologic: patellar DTR's 2+ bilat, sensation intact R facial droop Psychiatric: Orientation: alert, oriented x 3 and cooperative Lymphatic: no cervical or axillary lymphadenopathy Results & Data Results & Data ([facility]) Vital Signs (Past 12 Hours) Vital Signs Temp Pulse Pulse Resp BP BP Pulse Ox 11/11/19 15:55 36.3 C L 64 18 124/76 98 11/11/19 14:21 69 16 110/79 100 11/11/19 14:16 76 16 118/73 98 11/11/19 14:11 64 16 112/69 99 11/11/19 14:06 66 16 116/76 95 11/11/19 14:05 76 16 146/89 H 100 11/11/19 14:00 75 16 145/89 H 100 11/11/19 13:55 81 16 141/100 H 100 11/11/19 13:50 70 16 130/84 98 11/11/19 13:45 71 14 131/84 100 11/11/19 13:40 69 20 124/77 100 11/11/19 13:35 66 20 123/76 99 11/11/19 13:30 73 20 111/76 97 11/11/19 13:25 81 20 133/91 98 11/11/19 13:20 68 20 116/71 91 11/11/19 11:40 36.4 C L 66 20 103/66 97 11/11/19 08:00 36.4 C L 67 18 103/67 99 Laboratory Results 11/11/19 11/11/19 11/11/19 Range/Units Unknown 06:30 06:30 WBC 5.03 (4.8-10.8) K/uL RBC 4.34 L (4.7-6.1) M/uL Hgb 12.8 L (14.0-18.0) g/dL Hct 39.3 L (42-52) % MCV 90.6 (80-100) fL MCH 29.5 (25-34) pg MCHC 32.6 (32-36) g/dL RDW Std Deviation 49.8 H (36.4-46.3) fL RDW Coeff of Bee 15.0 H (11.5-14.5) % Plt Count 278 (130-400) K/uL MPV 9.2 (7.4-10.4) fL Immature Gran % (Auto) 0.0 % Neut % (Auto) 46.1 % Lymph % (Auto) 38.6 % [place] % (Auto) 8.9 % Eos % (Auto) 5.6 % Baso % (Auto) 0.8 % Neut # (Auto) 2.32 (1.4-6.5) K/uL Lymph # (Auto) 1.94 (1.2-3.4) K/uL [place] # (Auto) 0.45 (0.11-0.59) K/uL Eos # (Auto) 0.28 (0-0.5) K/uL Baso # (Auto) 0.04 (0-0.2) K/uL Immature Gran # (Auto) 0.00 (0.00-0.02) K/uL PT (9.0-12.0) Seconds INR (0.9-1.1) Sodium (136-145) mmol/L Potassium (3.5-5.1) mmol/L Chloride (98-107) mmol/L Carbon Dioxide (21-32) mmol/L Anion Gap (3-11) BUN (7-18) mg/dl Creatinine (0.6-1.4) mg/dl Est Cr Clr Drug Dosing ml/min Est GFR ( Amer) Est GFR (Non-Af Amer) BUN/Creatinine Ratio (10-20) Glucose (70-99) mg/dl Calcium (8.5-10.1) mg/dl Phosphorus (2.5-4.9) mg/dl Magnesium (1.8-2.4) mg/dl C-Reactive Protein (0-0.29) mg/dl Prealbumin (20-40) mg/dl Vitamin B12 733 (211-911) pg/ml Fluid Neutrophils % 23 % Fluid Lymphocytes % 4 % Fluid Eosinophils % 0 % Fl Monocyt/Macrophag % 73 % 11/11/19 11/11/19 Range/Units 06:30 06:30 WBC (4.8-10.8) K/uL RBC (4.7-6.1) M/uL Hgb (14.0-18.0) g/dL Hct (42-52) % MCV (80-100) fL MCH (25-34) pg MCHC (32-36) g/dL RDW Std Deviation (36.4-46.3) fL RDW Coeff of Bee (11.5-14.5) % Plt Count (130-400) K/uL MPV (7.4-10.4) fL Immature Gran % (Auto) % Neut % (Auto) % Lymph % (Auto) % [place] % (Auto) % Eos % (Auto) % Baso % (Auto) % Neut # (Auto) (1.4-6.5) K/uL Lymph # (Auto) (1.2-3.4) K/uL [place] # (Auto) (0.11-0.59) K/uL Eos # (Auto) (0-0.5) K/uL Baso # (Auto) (0-0.2) K/uL Immature Gran # (Auto) (0.00-0.02) K/uL PT 14.6 H (9.0-12.0) Seconds INR 1.4 H (0.9-1.1) Sodium 140 (136-145) mmol/L Potassium 4.1 (3.5-5.1) mmol/L Chloride 110 H (98-107) mmol/L Carbon Dioxide 27 (21-32) mmol/L Anion Gap 3.0 (3-11) BUN 11 (7-18) mg/dl Creatinine 0.40 L (0.6-1.4) mg/dl Est Cr Clr Drug Dosing 97.1 ml/min Est GFR ( Amer) 132.8 Est GFR (Non-Af Amer) 114.6 BUN/Creatinine Ratio 28.1 H (10-20) Glucose 101 H (70-99) mg/dl Calcium 9.1 (8.5-10.1) mg/dl Phosphorus 2.9 (2.5-4.9) mg/dl Magnesium 2.0 (1.8-2.4) mg/dl C-Reactive Protein 1.81 H (0-0.29) mg/dl Prealbumin 11.8 L (20-40) mg/dl Vitamin B12 (211-911) pg/ml Fluid Neutrophils % % Fluid Lymphocytes % % Fluid Eosinophils % % Fl Monocyt/Macrophag % % PG Care Time/CCT Total # of Minutes Spent Total Time Spent with Patient: Total time spent is greater than 50% in coordination of care (as documented) at patient's floor/unit and/or counseling patient: Coding Level of Care Code 11577 Subseq Hosp Care Lvl 3 Diagnoses Pneumonia J18.9 Laterality: bilateral Lung location: lower lobe of lung Pneumonia type: due to unspecified organism Hemoptysis R04.2 Inclusion body myositis G72.41 Dehydration E86.0 Acute hypotension I95.9 Weakness R53.1 Severe protein-calorie malnutrition E43 Status post insertion of percutaneous endoscopic gastrostomy (PEG) tube Z93.1 Hypokalemia E87.6 Chest pain R07.9 DVT prophylaxis Z29.9 (1) Pneumonia Laterality: bilateral Lung location: lower lobe of lung Pneumonia type: due to unspecified organism Qualified Code(s): J18.9 - Pneumonia, unspecified organism
[2019-11-11] MEDS: PEPTAMEN 1.5 CAL 1,000 ML BAG PEG SCH ×2 (16:23→22:37)
[2019-11-11 16:45] LABS: Eosinophil Body Fluid Man 0 %; Fluid Mono/Macrophage 73 %; Lymphocyte Body Fluid Man 4 %; Neutrophil Body Fluid Man 23 %
[2019-11-12 06:50] LABS: Hematocrit (blood only) 38.3 % (42-52); Hemoglobin 12.3 g/dL (14.0-18.0); Mean Corpuscular Hemoglobin 29.1 pg (25-34); Mean Corpuscular Hgb Conc 32.1 g/dL (32-36); Mean Corpuscular Volume 90.5 fL (80-100); Mean Platelet Volume 9.1 fL (7.4-10.4); Platelet Count 286 K/uL (130-400); RDW Coefficient of Variation 14.8 % (11.5-14.5); RDW Standard Deviation 49.5 fL (36.4-46.3); Red Blood Count 4.23 M/uL (4.7-6.1)
[2019-11-12 06:54] LABS: INR 1.2 (0.9-1.1); Prothrombin Time 12.9 Seconds (9.0-12.0)
[2019-11-12 07:23] LABS: BUN Creatinine Ratio 33.1 (10-20); Calcium 8.5 mg/dl (8.5-10.1); Creatinine Clr Calc Pharmacy 115.1 ml/min; Est GFR (African American) 143.7; Potassium 3.9 mmol/L (3.5-5.1)
[2019-11-12] MEDS: PIPERACILLIN/TAZOBACTAM 3.375 GM in DEXTROSE 5% 100 ML IV SCH (08:14)
[2019-11-12] MEDS: PROSOURCE NO CARB 30 ML/PKT PEG SCH (08:14)
--- NOTE | 2019-11-12 08:41 | Electrocardiogram Report ---
Test Reason : Blood Pressure : / mmHG Vent. Rate : 073 BPM Atrial Rate : 073 BPM P-R Int : 174 ms QRS Dur : 082 ms QT Int : 400 ms P-R-T Axes : 033 -70 081 degrees QTc Int : 440 ms Normal sinus rhythm Left axis deviation Low voltage QRS Possible Lateral infarct (cited on or before 08-NOV-2019) Inferior infarct , age undetermined Abnormal ECG When compared with ECG of 08-NOV-2019 12:23, (unconfirmed) No significant change was found Confirmed by Carmelo Solis ([id number]) on 11/12/2019 8:40:50 AM Referred By: REFERRED SELF Confirmed By:Carmelo Solis
--- NOTE | 2019-11-12 10:49 | Pulmonology Progress Note ---
Date of Service November 12, 2019 Assessment & Plan (1) Abnormal CT scan of lung: Impression: 79-year-old male with inclusion body myositis and profound malnutrition with cachexia admitted with hemoptysis and evidence of pneumonia. Review of his CT scan from August demonstrates that this is a new finding which would be a very rapid progression for malignancy. Pneumonia is the most likely diagnosis at this time. The patient does have significant debris noted in his tracheobronchial tree likely secondary to his swallowing dysfunction which may have predisposed him to pneumonia. The mediastinal lymph node appears unchanged when compared to prior CT scan from January 2019. Recommendations: 1. Hemoptysis: This Continues to improve. Most likely secondary to pneumonia with underlying anticoagulation. Bronchoscopy completed yesterday. No evidence of alveolar hemorrhage or significant hemoptysis. Would be glad to follow with the patient in the outpatient setting to see Dr. Butts for bronchoscopy results. 2. Abnormal CT scan: Likely aspiration pneumonia: Patient is receiving tube f eeds via PEG tube. Discussed sitting as upright as possible with feedings. Sputum cultures with heavy normal atul. Patient is currently day #5 Zosyn. Can discharge home today from a pulmonary perspective on Augmentin for a total of 2 weeks of treatment 3. History of PE: Seems reasonable to hold anticoagulation for now and observe clinically. No evidence of recurrent PE on his current film. INR today is 1.4. 4. The patient's mediastinal lymph node has been stable dating back to January. This suggests a low suspicion for malignancy. An inflammatory or infectious etiology is favored. 5. Aspiration: There did appear to be an area on the bronchoscopy that could have been food particles. This was biopsied and sent to the laboratory for analysis. I did discuss the importance of raising head of bed greater than 30 degrees for all tube feeds and oral ingestion. I also educated the patient that it would be best if he could sit in a bedside chair for all meals and for tube feeds. Thank you very much for including us in the care of this patient. We will sign off at this time. Please feel free to reconsult as needed. Please refer to Dr. Butts's addendum for further recommendations. (2) Hemoptysis: (3) Pneumonia: Admission and Anticipated Discharge Date Admission Date: November 08, 2019 Supervising Physician Co-Signing Physician Notes Patient seen and examined. Agree with assessment and plan as noted by KIANA zhao. He is improved on antibiotics. He tolerated bronchoscopy well yesterday. There was some foreign material in some of the right lower lobe bronchi which may correspond to the area of obstruction. These were lavaged free. Biopsies were taken with results showing prominent acute and chronic inflammation. This may be consistent with aspiration pneumonia. Brushing cytology specimens are currently pending. At this point time agree with antibiotics for 2 weeks in the form of Augmentin and follow-up CT scanning in 4 weeks. I would be happy to see him back unless the patient elects to pursue palliative measures in which case follow-up imaging or pulmonary follow-up would not be required. Subjective Attending: Dr. Butts Patient seen and examined at bedside today. He has no significant hemoptysis status post bronchoscopy yesterday. He is oxygenating well on room air. He has no acute complaints from a pulmonary standpoint. Bronchoscopy yesterday showed some inflammation in the airways but no mucopurulent secretions. There is no evidence of alveolar hemorrhage. There was one area that was biopsied which is suspected to be food particle from aspiration. Patient was found to bed at approximately 10 degrees head of bed elevated with tube feeds going. I placed bed at 30 degrees and educated the patient on importance of head of bed elevation with tube feeds or when taking anything o rally. Review of Systems Review of Systems: All systems reviewed & are unremarkable except as noted in HPI & below Physical Exam Physical Exam: GENERAL : No acute distress. Cachectic appearing EYES: No icterus, gaze conjugate NOSE: No evidence of epistaxis MOUTH: No lesions or candidiasis NECK: Supple LUNGS: Generally CTA B/L, no wheezes, rhonchi. Very faint crackles at bilateral bases HEART: Regular, rate controlled ABDOMEN: Soft, NT, ND, BS Present EXTREMITIES: No LE edema, pedal pulses intact NEURO: A&OX3 Results & Data Results & Data ([facility]) Vital Signs (Past 12 Hours) Vital Signs Temp Pulse Pulse Resp BP BP Pulse Ox 11/12/19 07:53 36.8 C 73 16 103/67 96 11/12/19 07:41 77 11/12/19 03:31 36.8 C 82 18 98/62 L 99 11/12/19 01:24 71 11/12/19 00:13 36.8 C 90 20 117/71 97 Laboratory Results 11/12/19 06:12 11/12/19 06:12 INR 1.2 (0.9-1.1) H 11/12/19 06:12 Diagnostic Findings Procedure Note: Bronchoscopy Procedure Procedure: Fiberoptic bronchoscopy Bronchoalveolar lavage Endobronchial brushing x2 Endobronchial biopsy single station Conscious sedation Provider: Ruel Butts MD Consent: Signed by patient and timeout verified prior to procedure. Sedation start: 1341 Sedation end: 1406 Conscious sedation: 3 mg Versed, 12.5 mg fentanyl, topical lidocaine per RT protocol Procedure: Patient was brought to the bronchoscopy suite. Consent was verified. Appropriate radiographic studies had been reviewed prior to the procedure. Standard monitoring was applied. Oxygen was administered. After topical anesthesia of the airways per respiratory therapy protocol, the fiberoptic scope was advanced through the left nares. Oropharynx was unremarkable. Vocal cords were visualized and were visualized and normal in function and appearance. Topical anesthesia of the cords was achieved with instillation of lidocaine through the scope. Scope was then passed through the vocal cords. The trachea was tortuous. Main paige was sharp. Anesthesia of t he lower airways was achieved with instillation of lidocaine through the scope. A sequential and systematic examination of the lower airways was conducted. The right-sided airways were erythematous and inflamed and the mucosa appeared normal. The right mainstem bronchus was patent as was the right upper lobe. The bronchus intermedius was unremarkable. Right middle lobe was patent. Descending into the right lower lobe, there was some mild narrowing of the superior segment and the medial basilar segment. There appeared to be some food material or lesion noted in the medial basilar segment of the right middle lobe. Please see photos. This was lavaged biopsied and brushed. Brushings and BAL were also conducted in the superior segment of the lower lobe. There were not significant mucopurulent secretions identified. Minimal bleeding was encountered with manipulation of the medial basilar segment of the right lower lobe but hemostasis was confirmed. Left-sided airways were erythematous and the mucosa appeared inflamed. The bronchoscope was then removed from the airways. The patient tolerated the procedure well without obvious complication. Patient was returned to the [facility] room. Impression: 1. Mildly tortuous trachea 2. Diffuse erythema of the lower airways possibly consistent with chronic aspiration. 3. Particulate matter versus mass lesion in the medial segment of the right lower lobe. Upon lavage this was able to be removed and likely represented aspiration material. Biopsies and brushings were taken. 4. Minimal purulent secretions identified in the lower airway. Await microbiologic and cytologic analysis. Signed By:<Electronically signed by Ruel Butts MD>11/11/19 1423 PG Care Time/CCT Total # of Minutes Spent Total Time Spent with Patient: Total time spent is greater than 50% in coordination of care (as documented) at patient's floor/unit and/or counseling patient: 25 minutes Coding Level of Care Code 77043 Subseq Hosp Care Lvl [address] scan of lung R91.8 Hemoptysis R04.2 Pneumonia J18.9 Time Spent (min) 25
[2019-11-12] MEDS: D5W AND 1/2NSS + 30MEQ KCL 30 MEQ/1,000 ML BAG IV SCH (11:10)
--- NOTE | 2019-11-12 11:54 | Discharge Summary ---
Date of Service November 13, 2019 Admission HPI Per Admitting Provider Elmer Hayden is a 79 year old male with complex medical history who presents to the ER with 4 days of hemoptysis, rapid weight loss and generalized weakness. Hemoptysis actually improved today, yesterday was at it's worst. Very shortness of breath on exertion, feels he is unable to take deep breaths. He reports never having coughed up clots previously, however previous notes reveal this was his presenting complaint in Jan 2019 when he was admitted to [facility] with a cavitary lung lesion. On that admission he was diagnosed with b/l PE and a 4cm cavitary lung lesion suspect to be a pulmonary infarct, pseudomonas PNA treated with initially with Zosyn (switched to cefepime) and Levaquin for 3-4 weeks. 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 At that time having dysphagia and severe muscle weakness. PEG tube placed at that time and changed 02/2019 Noted at his GI appointment in April he was noted not to be taking any medication (although prednisone and azathioprine were on med list). He was also not on any anticoagulation at this time but unclear why it was stopped. The patient reports stopping all of his medications but unclear exactly when. He felt with all the weight loss that he might be on too much. I am very concerned about this patient's lack of follow up given his severity of his conditions. He is yet to see a grocery supervisor since moving from [place]. CT apparently arranged at pulmonology appointment however the patient knows nothing about this. He is here today with his room mate (Neymar) who also was not aware he was supposed to have a CT back at the end of August and apparently help the patient with his medication and general medical care. The patient reports weight loss very rapidly over the last 2 weeks in addition. Weight in ER 27.72kg. On this was 46.2kg. He reports using nutritional drinks that he gets through a neon electrician but still losing weight. He does still drink coffee despite advice to stop all oral intake due to aspiration risk. Admission Exam Per Admitting Provider Constitutional: + cachectic; + not well nourished and no acute distress Eyes: + anicteric sclerae; normal pupil size Respiratory: Auscultation: + diminished lung sounds (poor inspiratory effort R base > L) and + wheezes; no crackles, no rales and no rhonchi Cardiovascular: Rate/Rhythm: regular rate (very quiet HS) and regular rhythm Vessels: no JVD Extremities: normal capillary refill; no calf tenderness and no pedal edema Gastrointestinal (Abdomen): Inspection/Auscultation: abdomen normal to inspection (PEG tube in situ) Percussion/Palpation: abdomen soft; abdomen nontender, no guarding and abdomen not rigid Musculoskeletal: Extremities: + muscle atrophy (severe generalized b/l) Skin: no rashes, warm and dry Neurologic: moves all extremities and awake; not confused Speech / Cognition: normal speech Psychiatric: Orientation: alert and oriented x 3 Genitourinary: no CVA tenderness Principal Diagnosis Aspiration Pneumonia, Inclusion Body Myositis with Severe Malnourishment Discharge Exam Constitutional + thin and + cachectic; + not well nourished and no acute distress Eyes + anicteric sclerae and PERRL ENMT Ears: no hearing impairment Nose: no external nose abnormality Respiratory able to speak in complete sentences; no respiratory distress and does not use accessory muscles Auscultation: + diminished lung sounds Cardiovascular Rate/Rhythm: regular rate and regular rhythm Heart Sounds: no murmur and no cardiac rub Vessels: no JVD Extremities: no edema Gastrointestinal (Abdomen) Inspection/Auscultation: normal bowel sounds Percussion/Palpation: abdomen soft; abdomen nontender peg Neurologic patellar DTR's 2+ bilat, sensation intact Psychiatric Orientation: alert, oriented x 3 and cooperative Lymphatic no cervical or axillary lymphadenopathy Discharge Data Allergies Allergy/AdvReac Type Severity Reaction Status Date / Time fentanyl Allergy Severe Seizure Verified 11/08/19 14:03 propofol Allergy Severe Seizure Verified 11/08/19 14:03 Consultations 11/08/19 15:30 ED Decision to Admit Stat 11/08/19 19:16 Consult Pulmonology Routine 11/09/19 00:37 Consult Palliative Care Routine 11/09/19 19:06 Consult Health Information Management Routine 11/10/19 14:49 Consult Patient Rep / Service Excellence [Consult Patient Services] Stat Procedures Performed Operation Date: 11/11/19 13:30 Actual Procedures p Bronchoscopy Radiology(Bilateral) - Ruel Butts MD Ordered Studies 11/08/19 12:52 CT angio chest PE protocol Stat Hospital Course (1) Pneumonia: * Imaging convincing of PNA however not overly symptomatic and may purely be aspiration (still drinking coffee despite PEG tube placement). COVID negative * Zosyn while inpatient --> transitioned to Augmentin via PEG to complete 14 day course of treatment * Did not require supplemental O2 -- 95% on RA * Nasal MRSA swab negative * BCx NGTD * Sputum culture with heavy normal atul (of note, did note moderate yeast) * Pulmonary on consult -- appreciate assistance Fiberoptic bronchoscopy. Bronchoscopy with Dr. Butts on 11/10 Micro prelim from bronch washings showing staph aureus, not MRSA. Concerns after discharge for a possible actinomysis --> per pulmonary conversation with supervising doc, they will follow up with patient early next week to see if he will need to come in to MTU/PICC line/possible need for IV Ceftriaxone. 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 Follow with coag clinic * To have INR drawn by home health for coag clinic (3) Inclusion body myositis: * Prior prednisolone and azathioprine use. No longer taking these medications as per the patient. Diagnosed byt Dr. Nathan [facility] June 2018 per outpatient notes * Spoke with Rheumatology --> unless need for urgent evaluation, may call Dr. Perez once patient discharged (was previously scheduled this Saturday, 11/10 and had 2 no shows) and he will see about getting him in sooner for follow-up. Palliative care consulted -- patient agreeable for hospice at discharge. 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 gravity urine. BUN increased from prior although Cr appears stable he has had significant weight loss since his last lab test in Jan 2019. * To continue free water flushes as directed by pharmacy intern (5) Acute hypotension: * Resolved with rehydration. Morning COrtisol 9 (6) Weakness: * PT/OT evals, pt uses walker at home (7) Severe protein-calorie malnutrition: * Consult dietary for enteral feeding through PEG tube (lactose-free formula at home). Trialed fibersource yesterday with increased diarrhea. * EN regimen changed to Peptamen 1.5 @ 25 ml/hr to advance as tolerated to goal rate of 45 ml/hr continuous for 1080mL TV, 1620 kcal (37 kcal/kg), 73 g protein (1.7 g protein/kg) & 834 ml free H2O + 200 ml free H2O flushes q 6 hr. * Also, 1 pkt of Prosource to be given via PEG tube once daily to provide add'l 60 kcal & 15 g protein. * Please flush his PEG tube with 60 ml H2O before and after administering the Prosource pkt. * Of note, patient was not giving himself enough free H2O flushes at home, despite written instructions as received outpatient 09/30 --> pharmacy intern and myself with repeated instructions to increase and continue at discharge * Prealbumin low at 11.8 Palliative consulted -- see above. (8) Status post insertion of percutaneous endoscopic gastrostomy (PEG) tube: * Secondary to dysphagia with inclusion body myositis (9) Hypokalemia: * Given replacement * K 3.6 at discharge (10) Chest pain: * x1. No further episodes. Trop <0.015. EKG unchanged * Most recent ECHO 2018 -- low normal systolic function. EF 50-55% * Suspect progression of IBM and weakness * O2 sat 95% on RA (11) DVT prophylaxis: * Chemical contraindicated. * Given severe protein-calorie malnutrition SCDs risk > benefit - especially as may just move DVTs he previously had Received information regarding possible actinomyces on culture. Will need follow up with pulmonary regarding these cultures with possible PICC line with IV Ceftriaxone. Pulmonology to follow up with patient early next week. Total Time Total Time Spent Total Time Spent (In Minutes): 120 Discharge Plan Discharge Items Patient Disposition: Hospice - Home Reason For Visit: WEIGHT LOSS,GENERALIZED WEAKNESS,MASS LESION ON HAYLEY Discharge Diagnosis: Aspiration Pneumonia, Severe Malnutrition Condition on Discharge: Good Goals: You have been hospitalized for an acute medical problem. During your stay at [facility], we have made an effort to correct the problem that brought you to the hospital while keeping you as comfortable as possible. Medications were used to bring your condition under control and your discharge instructions will include directions for any medications you should take after leaving the hospital. Please make sure you see your Primary Care Provider as part of your follow up plan. Activity: Resume your previous activity Non-emergency contact: Primary Care Provider and [place] Call non-emergency contact if: you have any medication questions, your symptoms worsen and your pain is not controlled Follow-up/Referrals: Manny Loomis M.D. [Primary Care Provider] - Diet: Nothing by Mouth Diet Comment: May use swabs to wet coffee for taste Ambulatory Orders: Prothrombin Time INR (Timed) Timeframe: 1 Week Location: Determined by Patient Ordered By: Tamika Chinchilla Attending Provider Instructions: You have been hospitalized for likely aspiration pneumonia due to ingestion of food/liquids by mouth. It is recommended that you stay strictly NOTHING BY MOUTH and you may wet swab with coffee if needed for taste but do not swallow, as instructed by palliative care provider. You were placed on antibiotics while in the hospital for this pneumonia and you will be sent with a prescription for Augmentin. This medication is to be taken as follows: * Augmentin 500mg suspension via PEG TWICE DAILY for an additional 9 days to complete a full 14 day course of treatment. Please note, this may cause diarrhea. For this reason, metamucil is being recommended 1-2 packets as needed daily for diarrhea to help bulk up your stool. Your tube feeds should be as follows: * Peptamen 1.5 @ 60 ml/hr for 18 hours a day, in order to give yourself sometime off of the tube feeding. * Free water flushes -- 200ml every six hours * Metamucil (can be bought over the counter): 1-2 packets via PEG tube as needed for diarrhea You have been evaluated by our palliative care team and arranged for Hospice at discharge. They will meet you at home once discharged. Please follow up with Rheumatology as an outpatient regarding your IBM. Please follow up with your primary care provider in the next week to monitor your progress. Please follow up with Dr. Butts to review results of your bronchoscopy. Your Coumadin is to be resumed and you should have your INR checked in the next week to monitor your levels. Please return to the emergency room for any symptoms that are concerning for you. It has been a pleasure being a part of the medical team providing for you while you have been in the hospital. Take care! Pending Studies at Discharge: Yes Studies:: Bronch Washings -- Fungal, Acid Fast Bascilli and GS pending Stand-Alone Forms: My [facility], Smoking Cessation Medications and DC Order Prescriptions: New ProSource No Carb 15-60 gram-kcal/30 mL Liquid In Packet 1 ea feeding tube DAILY 30 Days Qty: 3000 RF: 0 Peptamen 1.5 0.068 gram- 1.5 kcal/mL Liquid 1,000 ml PEG Q18H Qty: 60 RF: 0 amoxicillin-pot clavulanate 400-57 mg/5 mL suspension for reconstitution 10.9 ml PO BID 8 Days Qty: 174.4 RF: 0 Continued warfarin [Coumadin] 7.5 mg tablet 7.5 mg PO 2XWK RF: 0 warfarin [Coumadin] 5 mg tablet 5 mg PO 5XWK RF: 0 calcium carbonate-vitamin D3 [Calcium 600 + D(3)] 600 mg(1,500mg) -400 unit tablet 1 tab PO QAM RF: 0 Discontinued Ensure Enlive 0.08 gram-1.5 kcal/mL liquid 1 ea PO QID RF: 0 Ensure Liquid 1 ea PO QID RF: 0 Discharge Orders: Discharge Order (Routine); Ordered 11/13/19 Ordered By: Tamika Patton Admission Data Admit Date/Time: 11/08/19 16:24 Attending Provider: Seamus Grant Admit Provider: Brandyn Finch Primary Care Provider: Manny Loomis Other Providers: Brandyn Finch ; Ruel Butts Susan H Other Interventions: Discharge Summary Assessment (RN) Last Done: 11/13/19 12:03 DC Date/Time DO NOT enter until pt leaves facility: 11/13/19 13:14 Coding Level of Care Code D/C Day Management >30 mins Diagnoses Pneumonia J18.9 Laterality: bilateral Lung location: lower lobe of lung Pneumonia type: due to unspecified organism Hemoptysis R04.2 Inclusion body myositis G72.41 Dehydration E86.0 Acute hypotension I95.9 Weakness R53.1 Severe protein-calorie malnutrition E43 Status post insertion of percutaneous endoscopic gastrostomy (PEG) tube Z93.1 Hypokalemia E87.6 Chest pain R07.9 DVT prophylaxis Z29.9
--- NOTE | 2019-11-12 14:46 | Hospitalist Progress Note ---
Date of Service November 12, 2019 Assessment & Plan (1) Pneumonia: * Imaging convincing of PNA however not overly symptomatic and may purely be aspiration (still drinking coffee despite PEG tube placement). COVID negative * Continue Zosyn 3.75mg Q8H (on day #5 of therapy). Will send home on Augmentin suspension for total 14 day course of treatment. Will transition to Augmentin suspension for tomorrow to see how patient tolerates now that he will be staying overnight * Supplemental O2 as needed -- currently 98% on RA * Nasal MRSA swab negative * BCx -- ngtd -- follow * Sputum culture with heavy normal atul * Pulmonary on consult -- appreciate assistance * Bronchoscopy on 11/10: Appeared to be an area on the bronchoscopy w/ possible food particles. 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 On hold intially for bronch as above * INR in AM (3) Inclusion body myositis: * Prior prednisolone and azathioprine use. No longer taking these medications as per the patient. Diagnosed byt Dr. Nathan [facility] June 2018 per outpatient notes * Spoke with Rheumatology --> unless need for urgent evaluation, may call Dr. Perez once patient discharged (was previously scheduled this Saturday, 11/10 and had 2 no shows) and he will see about getting him in sooner for follow-up. Will reach out if needs more emergent evaluation * ?muscular problem causing him to feel like he cannot take deep breaths. Palliative care consulted -- patient agreeable for hospice at discharge. 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 gravity urine. BUN increased from prior although Cr appears stable he has had significant weight loss since his last lab test in Jan 2019. * Continue IVF -- D5W 1/2 NSS + 30 meq KCl at 80ml/hr for now. Will discontinue with flushes (5) Acute hypotension: * Improving, BP 130/84 * Mild low BP (previously on anti-hypertensives prior to stopping them in June -- BP stable low at 101/62 * Continue IV fluids only as long as mean arterial pressure > 65. * Cortisol level in AM given prior chronic steroid use and unclear when he stopped this--> 9.54 * Continue to monitor (6) Weakness: * PT/OT evals, pt uses walker at home (7) Severe protein-calorie malnutrition: * Consult dietary for enteral feeding through PEG tube (lactose-free formula at home). Trialed fibersource yesterday with increased diarrhea. * EN regimen changed to Peptamen 1.5 @ 25 ml/hr to advance as tolerated to goal rate of 45 ml/hr continuous for 1080mL TV, 1620 kcal (37 kcal/kg), 73 g protein (1.7 g protein/kg) & 834 ml free H2O + 200 ml free H2O flushes q 6 hr. * Also, 1 pkt of Prosource to be given via PEG tube once daily to provide add'l 60 kcal & 15 g protein. * Please flush his PEG tube with 60 ml H2O before and after administering the Prosource pkt. * Of note, patient was not giving himself enough free H2O flushes at home, despite written instructions as received outpatient 09/30 * Prealbumin low at 11.8 Palliative consulted -- see above. After conversation with pipe cleaning machine operator and multiple conversations with patient and CM, patient agreeable to Pepatmen 1.5 @ 60cc/hr for 18hours at discharge along with prosource and metamucil for bulking. To continue free water flushes. Patient agreeable to this plan at this time. (8) Status post insertion of percutaneous endoscopic gastrostomy (PEG) tube: * Secondary to dysphagia with inclusion body myositis (9) Hypokalemia: * RESOLVED -- K 3.9 * Repeat labs in AM (10) Chest pain: * "Chest heaviness and work of breathing reported this morning" on 11/10. No further episodes. Trop <0.015. EKG unchanged * Most recent ECHO 2018 -- low normal systolic function. 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 Patient had increased diarrhea this afternoon and to stay one more night. Nursing have been attempting to obtain stool culture for testing. Admission and Anticipated Discharge Date Admission Date: November 08, 2019 Subjective Patient evaluated this morning. Demonstrates understanding with tube feeding changes to be made at home and that the antibioitics may worsen the diarrhea temporarily. Still unable to provide stool sample as is mostly liquid and absorbed into bedding by the time nursing able to attempt sample collection. Denies any shortness of breath or further hemoptysis today. Denies chest pain, f yayo, chills, abdominal pain, nausea or vomiting at this time. Hopeful for discharge this afternoon with hospice. Later in afternoon, patient with increased diarrhea. Stated feels unable to return home safely at this time and would like to stay overnight for now and talk with CM about possible additional help once at home. Review of Systems Review of Systems: All systems reviewed & are unremarkable except as noted in HPI & below Physical Exam Constitutional: + thin and + cachectic; + not well nourished and no acute distress Eyes: + anicteric sclerae and PERRL ENMT: Ears: no hearing impairment Nose: no external nose abnormality Respiratory: no respiratory distress and does not use accessory muscles Auscultation: + diminished lung sounds Cardiovascular: Rate/Rhythm: regular rate and regular rhythm Heart Sounds: no murmur and no cardiac rub Vessels: no JVD Extremities: no edema Gastrointestinal (Abdomen): Inspection/Auscultation: normal bowel sounds Percussion/Palpation: abdomen soft; abdomen nontender PEG Skin: warm, dry Neurologic: patellar DTR's 2+ bilat, sensation intact Psychiatric: Orientation: alert, oriented x 3 and cooperative Lymphatic: no cervical or axillary lymphadenopathy Results & Data Results & Data ([facility]) Vital Signs (Past 12 Hours) Vital Signs Temp Pulse Pulse Resp BP Pulse Ox 11/12/19 11:39 36.8 C 68 16 101/62 98 11/12/19 07:53 36.8 C 73 16 103/67 96 11/12/19 07:41 77 11/12/19 03:31 36.8 C 82 18 98/62 L 99 Laboratory Results 11/12/19 11/12/19 11/12/19 Range/Units 11:45 06:12 06:12 WBC 11.00 H (4.8-10.8) K/uL RBC 4.23 L (4.7-6.1) M/uL Hgb 12.3 L (14.0-18.0) g/dL Hct 38.3 L (42-52) % MCV 90.5 (80-100) fL MCH 29.1 (25-34) pg MCHC 32.1 (32-36) g/dL RDW Std Deviation 49.5 H (36.4-46.3) fL RDW Coeff of Bee 14.8 H (11.5-14.5) % Plt Count 286 (130-400) K/uL MPV 9.1 (7.4-10.4) fL PT (9.0-12.0) Seconds INR (0.9-1.1) Sodium 140 (136-145) mmol/L Potassium 3.9 (3.5-5.1) mmol/L Chloride 111 H (98-107) mmol/L Carbon Dioxide 26 (21-32) mmol/L Anion Gap 3.0 (3-11) BUN 11 (7-18) mg/dl Creatinine 0.33 L (0.6-1.4) mg/dl Est Cr Clr Drug Dosing 115.1 ml/min Est GFR ( Amer) 143.7 Est GFR (Non-Af Amer) 124.0 BUN/Creatinine Ratio 33.1 H (10-20) Glucose 91 (70-99) mg/dl POC Glucose 115 H (70-99) mg/dl Calcium 8.5 (8.5-10.1) mg/dl Fluid Neutrophils % % Fluid Lymphocytes % % Fluid Eosinophils % % Fl Monocyt/Macrophag % % 11/12/19 11/11/19 Range/Units 06:12 Unknown WBC (4.8-10.8) K/uL RBC (4.7-6.1) M/uL Hgb (14.0-18.0) g/dL Hct (42-52) % MCV (80-100) fL MCH (25-34) pg MCHC (32-36) g/dL RDW Std Deviation (36.4-46.3) fL RDW Coeff of Bee (11.5-14.5) % Plt Count (130-400) K/uL MPV (7.4-10.4) fL PT 12.9 H (9.0-12.0) Seconds INR 1.2 H (0.9-1.1) Sodium (136-145) mmol/L Potassium (3.5-5.1) mmol/L Chloride (98-107) mmol/L Carbon Dioxide (21-32) mmol/L Anion Gap (3-11) BUN (7-18) mg/dl Creatinine (0.6-1.4) mg/dl Est Cr Clr Drug Dosing ml/min Est GFR ( Amer) Est GFR (Non-Af Amer) BUN/Creatinine Ratio (10-20) Glucose (70-99) mg/dl POC Glucose (70-99) mg/dl Calcium (8.5-10.1) mg/dl Fluid Neutrophils % 23 % Fluid Lymphocytes % 4 % Fluid Eosinophils % 0 % Fl Monocyt/Macrophag % 73 % PG Care Time/CCT Total # of Minutes Spent Total Time Spent with Patient: Total time spent is greater than 50% in coordination of care (as documented) at patient's floor/unit and/or counseling patient: Coding Level of Care Code 14762 Subseq Hosp Care Lvl 3 Diagnoses Pneumonia J18.9 Laterality: bilateral Lung location: lower lobe of lung Pneumonia type: due to unspecified organism Hemoptysis R04.2 Inclusion body myositis G72.41 Dehydration E86.0 Acute hypotension I95.9 Weakness R53.1 Severe protein-calorie malnutrition E43 Status post insertion of percutaneous endoscopic gastrostomy (PEG) tube Z93.1 Hypokalemia E87.6 Chest pain R07.9 DVT prophylaxis Z29.9 (1) Pneumonia Laterality: bilateral Lung location: lower lobe of lung Pneumonia type: due to unspecified organism Qualified Code(s): J18.9 - Pneumonia, unspecified organism
[2019-11-12] MEDS ORDERED: WARFARIN SOD 5 MG TAB PO SCH (16:00)
[2019-11-12] MEDS: PSYLLIUM 58.6% POWDER PACKET PO SCH (17:18)
[2019-11-12] MEDS: AMOXICILLIN/CLAVULANATE SUSP 400MG/5ML 50ML BOTTLE PO SCH (17:19)
[2019-11-13] MEDS: PEPTAMEN 1.5 CAL 1,000 ML BAG PEG SCH (01:13)
[2019-11-13 06:12] LABS: INR 1.2 (0.9-1.1); Prothrombin Time 12.4 Seconds (9.0-12.0)
[2019-11-13 06:14] LABS: Basophils # (auto) 0.05 K/uL (0-0.2); Basophils % (auto) 0.7 %; Eosinophils # (auto) 0.42 K/uL (0-0.5); Eosinophils % (auto) 5.6 %; Hematocrit (blood only) 41.2 % (42-52); Hemoglobin 13.2 g/dL (14.0-18.0); Immature Granulocytes # (auto) 0.01 K/uL (0.00-0.02); Immature Granulocytes % (auto) 0.1 %; Lymphocytes # (auto) 1.91 K/uL (1.2-3.4); Lymphocytes % (auto) 25.5 %; Mean Corpuscular Hemoglobin 29.3 pg (25-34); Mean Corpuscular Volume 91.6 fL (80-100); Mean Platelet Volume 9.1 fL (7.4-10.4); Monocytes # (auto) 0.58 K/uL (0.11-0.59); Monocytes % (auto) 7.7 %; Neutrophils # (auto) 4.52 K/uL (1.4-6.5); Neutrophils % (auto) 60.4 %; Platelet Count 292 K/uL (130-400); RDW Coefficient of Variation 14.7 % (11.5-14.5); RDW Standard Deviation 49.6 fL (36.4-46.3); White Blood Count 7.49 K/uL (4.8-10.8)
[2019-11-13 06:42] LABS: BUN Creatinine Ratio 35.8 (10-20); Creatinine Clr Calc Pharmacy 111.7 ml/min; Est GFR (Non-African American) 122.5; Potassium 3.6 mmol/L (3.5-5.1)
[2019-11-13] MEDS: PSYLLIUM 58.6% POWDER PACKET PO SCH (07:49)
[2019-11-13] MEDS: PROSOURCE NO CARB 30 ML/PKT PEG SCH (07:50)
[2019-11-13] MEDS: AMOXICILLIN/CLAVULANATE SUSP 400MG/5ML 50ML BOTTLE PO SCH (07:53)
[2019-11-13 09:45] LABS: Cdiff Antigen Positive; Cdiff Toxin A+B Negative Cdiff Toxin (Negative)
[2019-11-13] MEDS ORDERED: WARFARIN SOD 7.5 MG TAB PO SCH (16:00)
== END 2019-11-13 13:14 | disposition hospice, home (50) | DRG 177 ==
LOC: ED 11:14 → SUATTDRO 16:24 → 2W 16:24 → 2N 11-09 16:46